=== PATIENT | female | born 1970 | race Hispanic/Latino ===

== ENCOUNTER 2025-04-07 13:05 | Inpatient (IN) | payer OTHER ==
[~2025-04-07] VITALS: Ht 154.9 cm; Wt 71.7 kg
[2025-04-07 13:36] LABS: IMMATURE GRANULOCYTE ABSOLUTE 0.03 K/uL (0-1); NUCLEATED RED BLOOD CELLS 0.0 % (0.0-0.19); PLATELET COUNT (AUTO) 196 K/uL (130-400); RED BLOOD CELL COUNT(AUTO) 3.78 MIL/uL (4.00-5.50); RED CELL DISTRIBUTION WIDTH 13.0 % (11.0-15.5); WHITE BLOOD COUNT (AUTO) 7.1 K/uL (4.8-10.8)
[2025-04-07 13:43] LABS: CREATININE 3.3 mg/dL (0.5-1.0); GLOMERULAR FILTR. RATE CALC 16.0 mL/min (>90); GLUCOSE,RANDOM 150.0 mg/dL (70-105); SODIUM SERUM 138.0 mmol/L (136-145); UREA NITROGEN, BLOOD 41.0 mg/dL (7-18)
--- NOTE | 2025-04-07 13:49 | EKG ---
[facility] Test Date: 2025-04-07 Test Time: 13:15:48 Pat Name: PAIGE BOLTON Department: ED Room: Gender: F Ear Nose Throat Physician: [id number] : 1970 Requested By: LORRAINE GUSTAFSON Order Number: [id number] Reading MD: Chrystal Albrecht Measurements Intervals [place] Rate: 86 P: 50 MI: 149 QRS: 25 QRSD: 98 T: 73 QT: 367 QTc: 440 Interpretive Statements Sinus rhythm Consider anteroseptal infarct Nonspecific T abnormalities, lateral leads No previous ECG available for comparison Electronically Signed On 04-07-2025 14:34:50 CDT by Chrystal Albrecht Please click the below link to view image of tracing.
--- NOTE | 2025-04-07 13:56 | ERN ---
General Chief Complaint: Hypertension Stated Complaint: HTN Time Seen by MD: 13:17 History of Present Illness Initial Comments This is a 54-year-old female presents to the emergency department with a chief complaint of persistently elevated blood pressure over the past 48 hours. She reports home blood pressure measurements consistently in the 200s/100s, with a peak reading of 228/124 mm Hg this morning. She denies associated symptoms including headache, dizziness, visual changes, chest pain, palpitations, shortness of breath, lower extremity edema, abdominal or flank pain, and focal neurologic deficits. Allergies: Coded Allergies: No Known Drug Allergies (Unverified Allergy, Unknown, 04/07/25) Past Medical History Past Medical History: Diabetes-Type II, High Cholesterol, Hypertension Past Surgical History: Other Surgical History Other: RIGHT RETINAL SX Constitutional: (-) chills, (-) diaphoresis, (-) fever, (-) malaise, (-) weakness, (-) other documentation EENTM: (-) eye pain, (-) blurred vision, (-) tearing, (-) double vision, (-) ear pain, (-) ear discharge, (-) nose pain, (-) nose congestion, (-) throat pain, (-) Throat swelling, (-) mouth pain, (-) tooth pain, (-) mouth swelling, (-) other documentation Respiratory: (-) cough, (-) orthopnea, (-) short of breath, (-) stridor, (-) wheezing, (-) other documentation Cardiovascular: (-) chest pain, (-) edema, (-) palpitations, (-) syncope, (-) dyspnea on exertion, (-) other documentation Gastrointestinal/Abdominal: (-) nausea, (-) vomiting, (-) diarrhea, (-) abdominal pain, (-) abdominal distention, (-) constipation, (-) rectal bleeding, (-) dark stool/melena, (-) other documentation Genitourinary: (-) vaginal discharge, (-) vaginal bleeding, (-) dysuria, (-) frequency, (-) hematuria, (-) pain, (-) other documentation Musculoskeletal: (-) Neck pain, (-) back pain, (-) Flank Pain, (-) joint pain, (-) joint swelling, (-) muscle pain, (-) muscle stiffness, (-) gout, (-) other documentation Skin: (-) laceration, (-) contusion, (-) abrasion, (-) abscess, (-) rash, (-) change in color, (-) change in hair, (-) change in nails, (-) diaphoresis, (-) dryness, (-) other documentation Neuro: (-) altered mental status, (-) headache, (-) syncope, (-) paralysis, (-) numbness, (-) seizure, (-) pre-existing deficit, (-) tremors, (-) weakness, (-) dizziness, (-) slurred speech, (-) vertigo, (-) other documentation Physical Exam General Appearance: (+) no apparent distress Orientation: (+) alert, (+) oriented x 3 Ear, Nose, Throat: (+) hearing grossly normal Neck: (+) normal inspection, (+) supple Respiratory: (+) chest non-tender, (+) lungs clear Heart: (+) irregular (Heartbeat is regularly irregular) Vascular: (+) no edema, (+) normal peripheral pulse Gastrointestinal: (+) soft, (+) non-tender, (+) no organomegaly Extremities: (+) normal range of motion, (+) non-tender Results Laboratory and Microbiology Lab and Micro Result Laboratory Tests Test 04/07/25 13:32 04/07/25 16:17 White Blood Count 7.1 K/uL (4.8-10.8) Red Blood Count 3.78 MIL/uL (4.00-5.50) L Hemoglobin 10.9 g/dL (12.0-16.0) L Hematocrit 31.3 % (36-48) L Mean Corpuscular Volume 82.8 fL (79-99) Mean Corpuscular Hemoglobin 28.8 pg (27.0-33.0) Mean Corpuscular Hemoglobin Concent 34.8 g/dL (32.0-36.0) Red Cell Distribution Width 13.0 % (11.0-15.5) Platelet Count 196 K/uL (130-400) Mean Platelet Volume 9.7 fL (7.5-10.5) Immature Granulocyte % (Auto) 0.4 % (0-1) Neutrophils (%) (Auto) 68.8 % (40.0-77.0) Lymphocytes (%) (Auto) 22.7 % (21.0-51.0) Monocytes (%) (Auto) 5.6 % (3.0-13.0) Eosinophils (%) (Auto) 1.8 % (0.0-8.0) Basophils (%) (Auto) 0.7 % (0.0-5.0) Neutrophils # (Auto) 4.9 K/uL (1.8-7.7) Lymphocytes # (Auto) 1.6 K/uL (1.0-4.8) Monocytes # (Auto) 0.4 K/uL (0.1-1.0) Eosinophils # (Auto) 0.13 K/uL (0.00-0.70) Basophils # (Auto) 0.05 K/uL (0.00-0.20) Absolute Immature Granulocyte (auto 0.03 K/uL (0-1) Nucleated Red Blood Cells 0.0 % (0.0-0.19) Sodium Level 138 mmol/L (136-145) Potassium Level 4.0 mmol/L (3.5-5.1) Chloride Level 103 mmol/L (101-111) Carbon Dioxide Level 28 mmol/L (21-32) Blood Urea Nitrogen 41 mg/dL (7-18) H Creatinine 3.3 mg/dL (0.5-1.0) H Glomerular Filtration Rate Calc 16 mL/min (>90) Random Glucose 150 mg/dL (70-105) H Total Calcium 8.7 mg/dL (8.5-10.1) Troponin I High Sensitivity 12 ng/L (4-50) Urine Color COLORLESS (YELLOW) Urine Appearance CLEAR (CLEAR) Urine pH 6.5 (5.0-8.0) Urine Specific [place] 1.007 (1.001-1.031) Urine Protein 200 mg/dL (NEGATIVE) H Urine Glucose (UA) TRACE mg/dL (NEGATIVE) H Urine Ketones NEGATIVE mg/dL (NEGATIVE) Urine Occult Blood SMALL (NEGATIVE) H Urine Nitrate NEGATIVE (NEGATIVE) Urine Bilirubin NEGATIVE mg/dL (NEGATIVE) Urine Urobilinogen 0.2 mg/dL (0.2-1.0) Urine Leukocyte Esterase NEGATIVE Justyn/uL Urine RBC 0-1 /HPF (0-1) Urine WBC 2-5 /HPF (0-1) H Urine Squamous Epithelial Cells RARE /HPF (0-2) Urine Bacteria RARE /HPF (None Seen) Labs Reviewed?: Yes MDM MDM: Differential diagnosis: Worsening kidney function, hypertensive emergency, Rationale: Tests considered and ordered secondary to shared decision making include: labs, ECG and radiology Previous outside records reviewed: Old ER visits. Risk of complication and/or morbidity or mortality of patient management: None Medications-Per medication reconciliation Need for hospitalization: Patient does meet criteria for hospitalization. Need for emergency major/minor surgery: No There are no social concerns with this patient. Prescription drug management Prescriptions will include symptomatic care Patient's prior external medical records from other ER visits were reviewed by me as indicated. Prior testing and results from previous visits were reviewed. Prior tests were taken into account with medical decision making and resource utilization, independent historian/historians were used to obtain complete medical history. I independently interpreted the test that were performed, results were reviewed by me and considered findings on radiology if ordered. Medical management and examination interpretation discussions were had by me with other qualified healthcare professionals as indicated for the patient's care. Patient will be admitted under the care of hospitalist ED Course Orders Procedure Category Date Status Time Cbc With Differential LAB 04/07/25 Complete 13:21 Chest 1vw RAD 04/07/25 Resulted 13:21 12 Lead Ekg Tracing- EKG 04/07/25 Resulted Technical 13:21 Troponin I High LAB 04/07/25 Complete Sensitivity 13:21 Urinalysis Profile LAB 04/07/25 Complete 13:21 Basic Metabolic Panel LAB 04/07/25 Complete 13:21 Clonidine Hcl 0.2 Mg PHA 04/07/25 Complete Tablet (Catapres 0. 16:00 Nicardipine 25mg Inj PHA 04/07/25 In Process (Cardene 25mg Inj) 16:30 Current Medications Medications (Trade) Dose Ordered Sig/Loco Route PRN Reason Start Time Stop Time Status Last Admin Dose Admin Clonidine HCl (CATApres 0.2 MG TAB) 0.2 mg ONCE ONCE PO 04/07/25 16:00 04/07/25 16:01 DC 04/07/25 16:26 Nicardipine HCl 25 mg/Sodium Chloride 250 ml @ 0 mls/hr PROTOCOL IV 04/07/25 16:30 05/07/25 16:29 Vital Signs Date Time Temp Pulse Resp B/P (MAP) Pulse Ox O2 Delivery O2 Flow Rate FiO2 04/07/25 16:26 79 209/95 04/07/25 14:43 75 20 208/93 98 Room Air* 0 21 04/07/25 13:07 98.8 89 18 /93 98 Room Air DX & DISP Disposition: Inpatient Decision to Admit Time: 17:00 Departure Impression: Primary Impression: Worsening renal function Additional Impression: Hypertensive emergency Condition: Stable Referrals: SELF,REFERRAL (PCP) ROWAN RUBIO MD Apr 07, 2025 13:56 LORRAINE GUSTAFSON MD Apr 07, 2025 17:00
--- NOTE | 2025-04-07 14:22 | HMCIMG ---
CHEST 1VW REASON: htn COMPARISON: None. FINDINGS: Single view of the chest was obtained. Lungs are clear. Heart size is normal. There is no pulmonary vascular congestion. Mediastinum and bony thorax appear unremarkable. IMPRESSION: 1. Normal single view chest x-ray.
[2025-04-07 16:29] LABS: APPEARANCE,URINE CLEAR (CLEAR); GLUCOSE, URINE (UA) TRACE mg/dL (NEGATIVE); LEUKOCYTE ESTERASE ,URINE NEGATIVE Leu/uL (NEGATIVE); NITRATE,URINE NEGATIVE (NEGATIVE); OCCULT BLOOD,URINE SMALL (NEGATIVE)
[2025-04-07 16:35] LABS: ADD UA MICROSCOPIC YES
[2025-04-07 16:36] LABS: SQUAMOUS EPITHELIAL CELL,UR RARE /HPF (0-2)
--- NOTE | 2025-04-07 18:20 | HP ---
[facility] PHYS[facility] Date of Service: Apr 07, 2025 Time of Service: 18:19 HISTORY OF PRESENT ILLNESS: 54-year-old female with past medical history of hypertension, CKD who presented to the hospital secondary to elevated blood pressure. Patient states she was checking her blood pressure at home which was ranging in the upper 200s with peak reading of 228/124. Patient states she was recently diagnosed with hypertension by her primary care provider. 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 She followed up with her primary care provider who started patient on losartan. She started taking losartan around a week ago and was taking the medication at bedtime. She noted that her blood pressure still remained while taking the medication. She denies any chest pain, shortness of breath, abdominal pain, nausea, vomiting, headache, upper or lower extremity weakness. She complains of pain in the left flank area which radiates to left lower quadrant. She denies any changes in her urination and denied any hematuria. Denied any falls, syncopal episode. Labs in the ED were notable for white count of 7.1, hemoglobin was 10.9, platelet count was 196 K, sodium was 138, potassium was 4.0, creatinine was 3.3, blood glucose was [place], troponin was negative x1 Chest x-ray showed No acute infiltrates Presentation to the ED patient's temperature was 98.8, blood pressure was noted to be 206/93, heart rate was in the 80s, patient was saturating 98% on room air. In the ED patient was given clonidine without improvement in blood pressure. She was started on nicardipine drip in the ED. REVIEW OF SYSTEMS CONSTITUTIONAL: Denies fevers, chills, or night sweats. No unintentional weight loss reported. NEUROLOGICAL: Denies headache, amaurosis fugax, motor weakness, sensory deficit, vertigo/spinning sensation, gait abnormalities, or tremors. ENT: No hearing loss, otalgia, otorrhea, rhinitis, rhinorrhea, hoarseness, or sore throat. CARDIOVASCULAR: Denies any exertional angina, dyspnea on exertion, orthopnea, paroxysmal nocturnal dyspnea, palpitations, life-threatening arrhythmias, claudication. PULMONARY: Denies any shortness of breath, cough, phlegm/sputum, hemoptysis, pleuritic chest pain. SLEEP: Denies morning headaches, daytime somnolence or napping. Denies difficulty falling asleep, staying asleep, waking from sleep. Denies knowledge of snoring. GASTROINTESTINAL: Denies any type of dysphagia to either liquids or solids. Denies nausea, vomiting, pyrosis, early satiety, abdominal pain, diarrhea, c onstipation, or changes in stool consistency or caliber. Denies coffee-ground emesis, hematemesis, hematochezia, or melanotic stools. GENITOURINARY: Denies frequency, urgency, nocturia, hematuria or incontinence (Storage/Irritative symptoms.) Low urinary stream, straining to void, urinary intermittency or hesitancy, splitting of the voiding stream, terminal dribbling. Positive for pain in the left flank area ENDOCRINOLOGIC: Denies polyuria, polydipsia, polyphagia or heat/cold intolerances. HEMATOLOGIC: Denies thrombophilia/previous clots, or coagulopathy/bleeding disorders. ONCOLOGIC: Denies personal history of malignancy. DERMATOLOGIC: Denies rashes or pruritus. PSYCHIATRIC: Denies any suicidal or homicidal ideation. Denies hallucinations. PAST MEDICAL HISTORY: [ ] PAST SURGICAL HISTORY: [ ] PAST SOCIAL HISTORY: [ ] FAMILY HISTORY: [ ] Coded Allergies: No Known Drug Allergies (Unverified Allergy, Unknown, 04/07/25) PHYSICAL EXAM GENERAL APPEARANCE: The patient is awake, alert, and oriented, in no acute cardiopulmonary distress. NEUROLOGICAL: Cranial nerves II-XII grossly intact. Motor is 5/5 in bilateral upper and lower extremities proximal to distal. No sensory deficits. HEENT: Face is symmetric. Pupils are equal and reactive. Extraocular movements are intact. NECK: Supple. No JVD. No thyromegaly. No submental, submandibular, pre- /postauricular, occipital or supraclavicular lymphadenopathy. CHEST: Normal chest expansion. No Telemetry. LUNGS: Absence of any rales, rhonchi or any wheezing. CARDIOVASCULAR: Regular. S1 and S2 normal. No appreciable rubs, murmurs or gallops. ABDOMEN: Soft, nontender, and nondistended. There is no rebound, voluntary guarding, or rigidity. : Deferred. No [place]ok. EXTREMITIES: Non-edematous and not cyanotic. No clubbing. Good capillary refill. SKIN: No skin breakdown. Vital Sign (Last 24 Hours) 04/07/25 13:07 Temp 98.8 LABS: Laboratory: Test 04/07/25 16:17 04/07/25 13:32 Range/Units Urine Color COLORLESS YELLOW Urine Appearance CLEAR CLEAR Urine pH 6.5 5.0-8.0 Urine Specific [place] 1.007 1.001-1.031 Urine Protein 200 H NEGATIVE mg/dL Urine Glucose (UA) TRACE H NEGATIVE mg/dL Urine Ketones NEGATIVE NEGATIVE mg/dL Urine Occult Blood SMALL H NEGATIVE Urine Nitrate NEGATIVE NEGATIVE Urine Bilirubin NEGATIVE NEGATIVE mg/dL Urine Urobilinogen 0.2 0.2-1.0 mg/dL Urine Leukocyte Esterase NEGATIVE NEGATIVE Justyn/uL Urine RBC 0-1 0-1 /HPF Urine WBC 2-5 H 0-1 /HPF Urine Squamous Epithelial Cells RARE 0-2 /HPF Urine Bacteria RARE None Seen /HPF White Blood Count 7.1 4.8-10.8 K/uL Red Blood Count 3.78 L 4.00-5.50 MIL/uL Hemoglobin 10.9 L 12.0-16.0 g/dL Hematocrit 31.3 L 36-48 % Mean Corpuscular Volume 82.8 79-99 fL Mean Corpuscular Hemoglobin 28.8 27.0-33.0 pg Mean Corpuscular Hemoglobin Concent 34.8 32.0-36.0 g/dL Red Cell Distribution Width 13.0 11.0-15.5 % Platelet Count 196 130-400 K/uL Mean Platelet Volume 9.7 7.5-10.5 fL Immature Granulocyte % (Auto) 0.4 0-1 % Neutrophils (%) (Auto) 68.8 40.0-77.0 % Lymphocytes (%) (Auto) 22.7 21.0-51.0 % Monocytes (%) (Auto) 5.6 3.0-13.0 % Eosinophils (%) (Auto) 1.8 0.0-8.0 % Basophils (%) (Auto) 0.7 0.0-5.0 % Neutrophils # (Auto) 4.9 1.8-7.7 K/uL Lymphocytes # (Auto) 1.6 1.0-4.8 K/uL Monocytes # (Auto) 0.4 0.1-1.0 K/uL Eosinophils # (Auto) 0.13 0.00-0.70 K/uL Basophils # (Auto) 0.05 0.00-0.20 K/uL Absolute Immature Granulocyte (auto 0.03 0-1 K/uL Nucleated Red Blood Cells 0.0 0.0-0.19 % Sodium Level 138 136-145 mmol/L Potassium Level 4.0 3.5-5.1 mmol/L Chloride Level 103 101-111 mmol/L Carbon Dioxide Level 28 21-32 mmol/L Blood Urea Nitrogen 41 H 7-18 mg/dL Creatinine 3.3 H 0.5-1.0 mg/dL Glomerular Filtration Rate Calc 16 >90 mL/min Random Glucose 150 H 70-105 mg/dL Hemoglobin A1c 6.1 H 4.0-6.0 % Estimated Average Glucose (eAG) 128 H 70-126 mg/dL Total Calcium 8.7 8.5-10.1 mg/dL Troponin I High Sensitivity 12 4-50 ng/L C-Reactive Protein, Quantitative 2.80 0.5-3.0 mg/L Procalcitonin < 0.05 L 0.05-0.5 ng/mL Thyroid Stimulating Hormone (TSH) 1.31 0.36-3.74 uIU/mL Current Medications Medications (Trade) Dose Ordered Sig/Loco Route PRN Reason Start Time Stop Time Status Last Admin Dose Admin Acetaminophen (TYLenol 500MG TAB) 500 mg Q6H PRN PO MILD PAIN (1-3) 04/07/25 17:30 04/07/25 17:44 DC Acetaminophen (TYLenol 500MG TAB) 500 mg Q6H PRN PO MILD PAIN (1-3) 04/07/25 17:30 05/07/25 17:29 Nicardipine HCl 25 mg/Sodium Chloride 250 ml @ 0 mls/hr PROTOCOL IV 04/07/25 16:30 05/07/25 16:29 04/07/25 17:23 50 MLS/HR DIAGNOSTICS / RADIOLOGY: [ ] ASSESSMENT: Hypertensive emergency Acute kidney injury on chronic kidney disease Proteinuria Left-sided flank pain Hypokalemia History of retinopathy of the right eye History of cataract PLAN: - patient to be admitted to ICU -in reference to hypertensive emergency. The patient will be started on nicardipine drip to gradually lower blood pressure. Aim for 25 % reduction in MEP. We will request consultation with critical Care -obtain a urine protein and creatinine ratio random. Check urine sodium, urine creatinine. Obtain a CT abdomen pelvis. We will request consultation with Nephrology -obtain home medications which will be reconciled once available -obtain echocardiogram -further orders per hospitalization course. Advanced Care Planning Which of the following were discussed: Hospice care: Yes __ No _x_ Therapeutic options: Yes __ No __ Advance directives: Yes __ No __ Other discussions: Pt is full code Discussed with who?: patient (Patient, family or surrogates) Voluntary nature of this service was explained to the patient? Yes _x_ No __ Amount of time spent: 25 minutes AIMEE García MD, MD Apr 07, 2025 18:20
[2025-04-07 18:52] LABS: CREATININE,URINE RANDOM 31.71 mg/dL (30-135)
[2025-04-07 19:05] LABS: PROTEIN,URINE RANDOM 331.5 mg/dL (0-11.9)
--- NOTE | 2025-04-07 21:33 | HMCIMG ---
EXAMINATION: ULTRASOUND OF THE RETROPERITONEUM. CLINICAL HISTORY: LINA on CKD. COMPARISON: None. TECHNIQUE: Real-time grayscale ultrasound images of the kidneys. FINDINGS: The kidneys are normal in caliber, the right kidney measures 9.5 x 5.1 x 5.3 cm and the left kidney measures 10.9 x 4.6 x 4.9 cm in its craniocaudal, AP, and transverse dimensions respectively. There is normal renal cortical thickness, and increased cortical echogenicity. There is no renal calculus or hydronephrosis. There is a simple cortical cyst that measures 3.1 x 2.7 x 2.6 cm in the upper pole of the right kidney. The urinary bladder is normal in caliber and wall thickness. There are no calculi in the urinary bladder. IMPRESSION: Bilateral renal parenchymal disease. Right renal simple cortical cyst. /[place]
[2025-04-08] VITALS (17 sets, daily range): BP systolic 144–174; BP diastolic 70–86; PULSE 61–90; RESP 8–22; TEMP 97.2–98; O2SAT 97–99
[2025-04-08 08:48] LABS: IMMATURE GRANULOCYTE ABSOLUTE 0.02 K/uL (0-1); NUCLEATED RED BLOOD CELLS 0.0 % (0.0-0.19); PLATELET COUNT (AUTO) 195 K/uL (130-400); RED BLOOD CELL COUNT(AUTO) 3.48 MIL/uL (4.00-5.50); RED CELL DISTRIBUTION WIDTH 13.0 % (11.0-15.5); WHITE BLOOD COUNT (AUTO) 6.3 K/uL (4.8-10.8)
--- NOTE | 2025-04-08 09:12 | NUR ---
NICARDEPENE STOPPED BY NIGHT NURSE
[2025-04-08 09:15] LABS: % IRON SATURATION 19.3 % (22-44); IRON, SERUM 40.0 mcg/dL (50-170)
[2025-04-08] MEDS: FAMOTIDINE 20MG VIAL IV SCH (09:24)
[2025-04-08 09:28] LABS: CREATININE 3.5 mg/dL (0.5-1.0); GLOMERULAR FILTR. RATE CALC 15.0 mL/min (>90); GLUCOSE,RANDOM 95.0 mg/dL (70-105); SODIUM SERUM 136.0 mmol/L (136-145); UREA NITROGEN, BLOOD 43.0 mg/dL (7-18)
[2025-04-08] MEDS ORDERED: LOSA25TA41 PO (10:09)
[2025-04-08] MEDS ORDERED: FOLI0.8T22 PO (10:12)
[2025-04-08] MEDS ORDERED: PRED5DRO25 OD (10:12)
[2025-04-08] MEDS ORDERED: ROSU10TA72 PO (10:12)
[2025-04-08] MEDS ORDERED: KETO-108 OD (10:12)
--- NOTE | 2025-04-08 10:28 | HMCIMG ---
PELVIC ULTRASOUND INDICATION: positive beta HCG, assess ovary and uterus TECHNIQUE: Pelvic ultrasound was performed by a resource manager and reviewed by a radiologist. FINDINGS: Uterus: 8.4 x 3.0 x 4.4 cm. There is to small fibroids seen in the uterus in the fundal region anteriorly measures 0.6 x 0.3 x 0.6 cm. In the posterior uterus there is a fibroid measuring 0.4 x 0.3 x 0.57.. There is small amount of fluid seen in the cervix. Endometrial complex: 0.2 cm. Right ovary measures 1.7 x 1.1 x 1.5 cm. There is a small right ovarian simple cyst measuring 0.6 x 0.7 to 0.6 cm.. Left ovary obscured by overlying bowel gas.. Cul-de-sac: Unremarkable. IMPRESSION: Small fibroids as described above Small right ovarian cyst FINAL ASSESSMENT: ACR: O-RAD- 2 Almost certainly benign.
[2025-04-08] MEDS ORDERED: COMPOUND IV MISC 1 EACH IVSOLN MISC PRN (12:00)
--- NOTE | 2025-04-08 12:35 | CONS ---
REFERRING PHYSICIAN: Trevor Finch MD REASON FOR CONSULTATION: Renal failure, uncontrolled hypertension. HISTORY OF PRESENT ILLNESS: A 54-year-old female with a history of diabetes mellitus and hypertension. She presented to the hospital with hypertensive urgency. The patient with systolic blood pressure well above 200 mmHg. The patient states she had been compliant with her outpatient medications. In the Emergency Room, the patient was found to have significant renal dysfunction with an elevated BUN and creatinine and the patient is being seen in consultation for all the above. PAST MEDICAL HISTORY: Diabetes mellitus, hypertension, known retinopathy. PAST SURGICAL HISTORY: Eye surgery. SOCIAL HISTORY: No alcohol or tobacco use. FAMILY HISTORY: No renal disease in the family. ALLERGIES: There are no allergies. MEDICATIONS: All noted. REVIEW OF SYSTEMS: CONSTITUTIONAL: She has been feeling weak and tired. HEENT: No change in vision. No change in hearing. No nasal discharge. No sore throat. CARDIOVASCULAR: There is no current chest pain or palpitations. PULMONARY: She denies any shortness of breath. GASTROINTESTINAL: The patient is tolerating a diet. MUSCULOSKELETAL: Complaints of weakness. NEUROLOGIC: No history of seizures or focal deficits. PSYCHIATRIC: No history of hallucination or psychosis. ENDOCRINE: Diabetes mellitus. No history of thyroid disease. HEME: History of anemia. No history of malignancy. PHYSICAL EXAMINATION: VITAL SIGNS: Blood pressure 144/73 on the nicardipine, pulse in the 60s. GENERAL: Chronically ill female, older than appearing. HEENT: Head is atraumatic. Pupils are equal, roving to light. Oropharynx is without exudate. Nares clear. NECK: There is no JVP. There is no thyromegaly. No masses. CARDIOVASCULAR: Regular. There is no S3 or S4 gallop. LUNGS: Coarse with equal thoracic movement. ABDOMEN: Soft, nondistended, nontender. EXTREMITIES: Reveal no clubbing, no cyanosis. NEUROLOGICAL: She is awake. She is alert. She is oriented. SKIN: Reveals no rashes or nodules. BACK: There is no CVA tenderness. There is no back deformity. LABORATORY DATA: Sodium 136, potassium 3.8. Iron levels are noted. Hemoglobin 10, hematocrit 29. Urinalysis does reveal 10 g of proteinuria. IMPRESSION: * Acute on chronic renal failure. * Diabetic nephropathy. * Hypertension. * Anemia. PLAN: The patient presents with significant renal dysfunction that appears mainly chronic in nature. The patient with evidence of diabetic nephropathy. She has been resumed on losartan. We will add Norvasc to the medical regimen for improved blood pressure control and we will continue to follow closely. She can be given a dose of IV Venofer for the anemia. All labs can be repeated in the a.m. There is no need for any form of renal replacement therapy. The patient and family at the bedside. Multiple questions were answered. TID: [id number] RECEIPT: [id number]
[2025-04-08] MEDS: amLODIPine 5 MG TAB PO ONE (12:54)
--- NOTE | 2025-04-08 14:23 | PN ---
[facility] PROGRESS NOTE Date of Service: Apr 08, 2025 Time of Service: 14:23 HISTORY OF PRESENT ILLNESS: 54-year-old female with past medical history of hypertension, CKD who presented to the hospital secondary to elevated blood pressure. Patient states she was checking her blood pressure at home which was ranging in the upper 200s with peak reading of 228/124. Patient states she was recently diagnosed with hypertension by her primary care provider. 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 She followed up with her primary care provider who started patient on losartan. She started taking losartan around a week ago and was taking the medication at bedtime. She noted that her blood pressure still remained while taking the medication. She denies any chest pain, shortness of breath, abdominal pain, nausea, vomiting, headache, upper or lower extremity weakness. She complains of pain in the left flank area which radiates to left lower quadrant. She denies any changes in her urination and denied any hematuria. Denied any falls, syncopal episode. Labs in the ED were notable for white count of 7.1, hemoglobin was 10.9, platelet count was 196 K, sodium was 138, potassium was 4.0, creatinine was 3.3, blood glucose was Kane, troponin was negative x1 Chest x-ray showed No acute infiltrates Presentation to the ED patient's temperature was 98.8, blood pressure was noted to be 206/93, heart rate was in the 80s, patient was saturating 98% on room air. In the ED patient was given clonidine without improvement in blood pressure. She was started on nicardipine drip in the ED. SUBJECTIVE: [ ] 04/08/2025: Patient was evaluated at bedside in room 219. Patient reports that she has a recent diagnosis of hypertension while being evaluated for retinal detachment surgery in her right eye. Patient reports starting losartan 25 mg b.i.d. on Thursday this week. Patient reports noticing blood pressures greater than 200/100 at home that prompted her to visit the ED. Patient denies headaches, chest pain, shortness of breath, pedal edema, confusion, and weakness in extremities throughout this time. Patient reports she had sleep apnea in the past that is controlled after tonsillectomy. While in the ED clonidine was given that did not reduce her blood pressure and later a nicardipine drip was started and was later weaned off. Her blood pressure was in the range of 160s and diastolic in the range of 80s during my visit. Patient's creatinine was 3.5 And no prior values are available to assess her baseline. Patient was seen by Dr. aSavedra, design drafter who advised to start losartan 50 mg daily and amlodipine [address] Saavedra deemed her creatinine is most likely chronic in nature due to hypertension. REVIEW OF SYSTEMS CONSTITUTIONAL: Denies fevers, chills, or night sweats. No unintentional weight loss reported. NEUROLOGICAL: Denies headache, motor weakness, sensory deficit, vertigo/spinning sensation, gait abnormalities, or tremors. ENT: No hearing loss, otalgia, otorrhea, rhinitis, rhinorrhea, hoarseness, or sore throat. CARDIOVASCULAR: Denies any exertional angina, dyspnea on exertion, orthopnea, paroxysmal nocturnal dyspnea, palpitations, life-threatening arrhythmias, claudication. PULMONARY: Denies any shortness of breath, cough, phlegm/sputum, hemoptysis, pleuritic chest pain. SLEEP: Denies morning headaches, daytime somnolence or napping. Denies difficulty falling asleep, staying asleep, waking from sleep. Admits to snoring GASTROINTESTINAL: Denies any type of dysphagia to either liquids or solids. Denies nausea, vomiting, pyrosis, early satiety, abdominal pain, diarrhea, constipation, or changes in stool consistency or caliber GENITOURINARY: Denies frequency, urgency, nocturia, hematuria or incontinence (Storage/Irritative symptoms.)\ Musculoskeletal: Admits to chronic back pain PHYSICAL EXAM GENERAL APPEARANCE: The patient is awake, alert, and oriented, in no acute cardiopulmonary distress. NEUROLOGICAL: Cranial nerves II-XII grossly intact. Motor is 5/5 in bilateral upper and lower extremities proximal to distal. No sensory deficits. HEENT: Face is symmetric. Pupils are equal and reactive. Extraocular movements are intact. NECK: Supple. No JVD. No thyromegaly. No submental, submandibular, pre- /postauricular, occipital or supraclavicular lymphadenopathy. CHEST: Normal chest expansion. No Telemetry. LUNGS: Absence of any rales, rhonchi or any wheezing. CARDIOVASCULAR: Regular. S1 and S2 normal. No appreciable rubs, murmurs or gallops. ABDOMEN: Soft, nontender, and nondistended. There is no rebound, voluntary guarding, or rigidity. : Deferred. No Crook. EXTREMITIES: Non-edematous and not cyanotic. No clubbing. Good capillary refill. SKIN: No skin breakdown. Vital Signs (last 8hr) Date Time Temp Pulse Resp B/P (MAP) Pulse Ox O2 Delivery O2 Flow Rate FiO2 04/08/25 13:00 65 22 161/81 100 Room Air 04/08/25 12:00 61 17 157/72 99 Room Air 04/08/25 11:30 99 Room Air* 0 21 04/08/25 11:00 97.2 65 22 144/73 99 Room Air 04/08/25 08:47 80 16 148/78 98 Room Air* 0 21 04/08/25 07:42 97.9 80 16 148/65 96 Room Air* 0 21 LABS: Laboratory: Test 04/08/25 08:18 04/07/25 16:17 04/07/25 13:32 Range/Units White Blood Count 6.3 4.8-10.8 K/uL Red Blood Count 3.48 L 4.00-5.50 MIL/uL Hemoglobin 10.1 L 12.0-16.0 g/dL Hematocrit 29.2 L 36-48 % Mean Corpuscular Volume 83.9 79-99 fL Mean Corpuscular Hemoglobin 29.0 27.0-33.0 pg Mean Corpuscular Hemoglobin Concent 34.6 32.0-36.0 g/dL Red Cell Distribution Width 13.0 11.0-15.5 % Platelet Count 195 130-400 K/uL Mean Platelet Volume 10.1 7.5-10.5 fL Immature Granulocyte % (Auto) 0.3 0-1 % Neutrophils (%) (Auto) 65.8 40.0-77.0 % Lymphocytes (%) (Auto) 24.3 21.0-51.0 % Monocytes (%) (Auto) 5.5 3.0-13.0 % Eosinophils (%) (Auto) 3.5 0.0-8.0 % Basophils (%) (Auto) 0.6 0.0-5.0 % Neutrophils # (Auto) 4.2 1.8-7.7 K/uL Lymphocytes # (Auto) 1.5 1.0-4.8 K/uL Monocytes # (Auto) 0.4 0.1-1.0 K/uL Eosinophils # (Auto) 0.22 0.00-0.70 K/uL Basophils # (Auto) 0.04 0.00-0.20 K/uL Absolute Immature Granulocyte (auto 0.02 0-1 K/uL Nucleated Red Blood Cells 0.0 0.0-0.19 % Reticulocyte Count (auto) 1.18539 0.42-2.23 % Immature Reticulocyte Fraction 7.80 H 0.18-0.48 % Sodium Level 136 136-145 mmol/L Potassium Level 3.8 3.5-5.1 mmol/L Chloride Level 104 101-111 mmol/L Carbon Dioxide Level 26 21-32 mmol/L Blood Urea Nitrogen 43 H 7-18 mg/dL Creatinine 3.5 H 0.5-1.0 mg/dL Glomerular Filtration Rate Calc 15 >90 mL/min Random Glucose 95 70-105 mg/dL Total Calcium 8.7 8.5-10.1 mg/dL Iron Level 40 L 50-170 mcg/dL Total Iron Binding Capacity 207 L 250-450 mcg/dL Percent Iron Saturation 19.3 L 22-44 % Ferritin 231 H 15-150 ng/mL Vitamin B12 Level 1060 H 193-986 pg/mL Urine Color COLORLESS YELLOW Urine Appearance CLEAR CLEAR Urine pH 6.5 5.0-8.0 Urine Specific [place] 1.007 1.001-1.031 Urine Protein 200 H NEGATIVE mg/dL Urine Glucose (UA) TRACE H NEGATIVE mg/dL Urine Ketones NEGATIVE NEGATIVE mg/dL Urine Occult Blood SMALL H NEGATIVE Urine Nitrate NEGATIVE NEGATIVE Urine Bilirubin NEGATIVE NEGATIVE mg/dL Urine Urobilinogen 0.2 0.2-1.0 mg/dL Urine Leukocyte Esterase NEGATIVE NEGATIVE Justyn/uL Urine RBC 0-1 0-1 /HPF Urine WBC 2-5 H 0-1 /HPF Urine Squamous Epithelial Cells RARE 0-2 /HPF Urine Bacteria RARE None Seen /HPF Urine Random Creatinine 31.71 30-135 mg/dL Urine Random Total Protein 331.5 H 0-11.9 mg/dL Urine Random Sodium 51 40-220 mmol/l Hemoglobin A1c 6.1 H 4.0-6.0 % Estimated Average Glucose (eAG) 128 H 70-126 mg/dL Troponin I High Sensitivity 12 4-50 ng/L C-Reactive Protein, Quantitative 2.80 0.5-3.0 mg/L Procalcitonin < 0.05 L 0.05-0.5 ng/mL Thyroid Stimulating Hormone (TSH) 1.31 0.36-3.74 uIU/mL Human Chorionic Gonadotropin, Quant 9 H 0-5 mIU/mL Current Medications Medications (Trade) Dose Ordered Sig/Loco Route PRN Reason Start Time Stop Time Status Last Admin Dose Admin Acetaminophen (TYLenol 500MG TAB) 500 mg Q6H PRN PO MILD PAIN (1-3) 04/07/25 17:30 04/07/25 17:44 DC Acetaminophen (TYLenol 500MG TAB) 500 mg Q6H PRN PO MILD PAIN (1-3) 04/07/25 17:30 05/07/25 17:29 Amlodipine Besylate (NorvASC 5MG TAB) 10 mg DAILY PO 04/09/25 09:00 05/09/25 08:59 Atorvastatin Calcium (LIPItor 40MG) 40 mg HS PO 04/08/25 21:00 05/08/25 20:59 Famotidine (Pepcid 20mg Vial) 20 mg Q48H IV 04/08/25 09:00 05/08/25 08:59 04/08/25 09:24 20 MG Ketorolac Tromethamine (ketOROlac troMETHamine) 1 ml BID OD 04/08/25 21:00 05/08/25 20:59 Losartan Potassium (CozAAR 25MG TAB) 25 mg BID PO 04/08/25 11:30 05/08/25 11:29 04/08/25 12:13 25 MG Losartan Potassium (CozAAR 25MG TAB) 25 mg BID PO 04/08/25 21:00 05/08/25 20:59 UNV Nicardipine HCl 25 mg/Sodium Chloride 250 ml @ 0 mls/hr PROTOCOL IV 04/07/25 16:30 05/07/25 16:29 04/07/25 17:23 50 MLS/HR Prednisolone Acetate (PREDforte 1% DROPS) 1 drop DAILY OD 04/09/25 09:00 05/09/25 08:59 Vitamin B Complex/ Vit C/Folic Acid (Nephrovite Tablet) 1 cap DAILY PO 04/09/25 09:00 05/09/25 08:59 DIAGNOSTICS / RADIOLOGY: [ ] PATIENT: PAIGE BOLTON MR#: [id number] : 1970 SEX: F AGE: 54 LOCATION: [facility] ORDER 1244 STATUS: ADM IN REPORT#: [id number] SERVICE 1243 REASON: htn emergency ORDERING PHYSICIAN: MEÑO FABIAN PROCEDURE: ECHO CMP - ECHO 2-D COMPLETE APPROVED REPORT EXAM: Two-dimensional and M-mode echocardiogram with Doppler and color Doppler. INDICATION ICD: HTN emergency 2D Dimensions RVDd 3.6 cm LVEF(%) 68.0 (>50%) LVED Vol(simp.) 82.1 mL IVSd 1.2 (0.7-1.1cm) FS(%) 37 % LVES Vol(simp.) 33.5 mL LVDd 3.9 (3.8-5.6cm) LA (2D) 3.9 (1.6-4.0cm) LVEF(%, simp.) 59 % PWd 1.3 (0.7-1.1cm) Ao Root(2D) 2.9 (2.0-3.7cm) LA ESV INDEX (BP) 31.26 mL/m2 LVDs 2.4 (2.5-4.0cm) LVOT diam 1.9 (1.8-2.4cm) IVC diam 1.7 cm Deformation Strain Apical 4 -14.9 % Apical 2 -16.3 % Apical 3 -14.0 % Global Strain -15.0 % M-Mode Dimensions EPSS 0.5 cm LA (MM) 3.8 (1.6-4.0cm) Ao Root(MM) 2.6 (2.0-3.7cm) Aortic Valve AoV Vmax 1.0 m/s Ao Peak GR 3.9 mmHg LVOT Vmax 0.7 m/s AoV VTI 0.3 m Ao Mean GR 2.3 mmHg LVOT VTI 0.18 m EDDIE (VMAX) 2.02 cm2 EDDIE (VTI) 1.9 cm2 Mitral Valve MV E Vmax 82.2 cm/s DECEL Time 195 ms MV A Vmax 68.6 cm/s P 1/2 T 83 ms E/A ratio 1.2 MVA (PHT) 2.6 cm2 TDI E/E' Medial 19.1 E/E' Lateral 12.7 Medial E' Peak V 4.31 cm/s Lateral E' Peak V 6.46 cm/s Pulmonary Valve PV Vmax 0.8 m/s PV VTI 0.20 m PV Mean GR 1.5 mmHg PV Peak GR 2.5 mmHg Left Ventricle The left ventricle is normal size. Mild concentric left ventricular hypertrophy. LVEF is 55-60%. Indeterminate diastolic dysfunction. Right Ventricle The right ventricle is normal size. The right ventricular systolic function is normal. Atria The left atrium size is normal. The right atrium size is normal. Aortic Valve The aortic valve is normal in structure. No aortic regurgitation is present. There is no aortic valvular stenosis. Mitral Valve The mitral valve is normal in structure. There is no mitral valve regurgitation noted. There is no mitral valve stenosis. Tricuspid Valve The tricuspid valve is normal in structure. There is no tricuspid valve regurgitation noted. Pulmonic Valve The pulmonary valve is normal in structure. There is no pulmonic valvular regurgitation. Great Vessels The aortic root is normal in size. The IVC is normal in size and collapses >50% with inspiration. Pericardium There is trace pericardial effusion. Conclusion The left ventricle is normal size. Mild concentric left ventricular hypertrophy. LVEF is 55-60%. Indeterminate diastolic dysfunction. The right ventricle is normal size. The right ventricular systolic function is normal. The left atrium size is normal. The right atrium size is normal. No valvular pathology. There is trace pericardial effusion. DICTATED BY: JOSH TRAYLOR MD DATE: 04/08/25 1414 ELECTRONICALLY SIGNED BY: JOSH TRAYLOR MD DATE: 04/08/25 1659 PATIENT: PAIGE BOLTON MR#: [id number] : 1970 SEX: F AGE: 54 LOCATION: [facility] ORDER 12 STATUS: ADM IN REPORT#: [id number] SERVICE 11 REASON: positive beta HCG, assess ovary and uterus ORDERING PHYSICIAN: AIMEE MEDINA MD PROCEDURE: PELVCOMP - US PELVIC NON-OB COMP PELVIC ULTRASOUND INDICATION: positive beta HCG, assess ovary and uterus TECHNIQUE: Pelvic ultrasound was performed by a car dumper operator and reviewed by a radiologist. FINDINGS: Uterus: 8.4 x 3.0 x 4.4 cm. There is to small fibroids seen in the uterus in the fundal region anteriorly measures 0.6 x 0.3 x 0.6 cm. In the posterior uterus there is a fibroid measuring 0.4 x 0.3 x 0.57.. There is small amount of fluid seen in the cervix. Endometrial complex: 0.2 cm. Right ovary measures 1.7 x 1.1 x 1.5 cm. There is a small right ovarian simple cyst measuring 0.6 x 0.7 to 0.6 cm.. Left ovary obscured by overlying bowel gas.. Cul-de-sac: Unremarkable. IMPRESSION: Small fibroids as described above Small right ovarian cyst FINAL ASSESSMENT: ACR: O-RAD- 2 Almost certainly benign. DICTATED BY: NASH ORTEZ MD DATE: 04/08/25 1022 ELECTRONICALLY SIGNED BY: NASH ORTEZ MD DATE: 04/08/25 1028 PATIENT: PAIGE BOLTON MR#: [id number] : 1970 SEX: F AGE: 54 LOCATION: [facility] ORDER 42 STATUS: ADM IN REPORT#: [id number] SERVICE 41 REASON: lina on CKD ORDERING PHYSICIAN: AIMEE MEDINA MD PROCEDURE: RENAL - US RENAL SONOGRAM EXAMINATION: ULTRASOUND OF THE RETROPERITONEUM. CLINICAL HISTORY: LINA on CKD. COMPARISON: None. TECHNIQUE: Real-time grayscale ultrasound images of the kidneys. FINDINGS: The kidneys are normal in caliber, the right kidney measures 9.5 x 5.1 x 5.3 cm and the left kidney measures 10.9 x 4.6 x 4.9 cm in its craniocaudal, AP, and transverse dimensions respectively. There is normal renal cortical thickness, and increased cortical echogenicity. There is no renal calculus or hydronephrosis. There is a simple cortical cyst that measures 3.1 x 2.7 x 2.6 cm in the upper pole of the right kidney. The urinary bladder is normal in caliber and wall thickness. There are no calculi in the urinary bladder. IMPRESSION: Bilateral renal parenchymal disease. Right renal simple cortical cyst. /[place] DICTATED BY: MARINO MONTALVO Jr., MD DATE: 04/07/252232 ELECTRONICALLY SIGNED BY: MARINO MONTALVO Jr., MD DATE: 04/07/252232 PATIENT: PAIGE BOLTON MR#: [id number] : 1970 SEX: F AGE: 54 LOCATION: ED ORDER 21 STATUS: REG REPORT#: [id number] SERVICE 20 REASON: htn ORDERING PHYSICIAN: LORRAINE GUSTAFSON MD PROCEDURE: CXR1VW - CHEST 1VW CHEST 1VW REASON: htn COMPARISON: None. FINDINGS: Single view of the chest was obtained. Lungs are clear. Heart size is normal. There is no pulmonary vascular congestion. Mediastinum and bony thorax appear unremarkable. IMPRESSION: 1. Normal single view chest x-ray. DICTATED BY: NASH ORTEZ MD DATE: 04/07/251418 ELECTRONICALLY SIGNED BY: NASH ORTEZ MD DATE: 04/07/251421 ASSESSMENT: Hypertensive emergency Acute kidney injury on chronic kidney disease Proteinuria Elevated beta hCG Mild concentric left ventricular hypertrophy and indeterminate diastolic dysfunction Left-sided flank pain, most likely musculoskeletal in nature History of surgery on right eye for partial retinal detachment History of bilateral cataracts History of sleep apnea History of tonsillectomy PLAN: Hypertensive emergency Patient admitted to ICU, telemetry is in place On admission blood pressure was 206/93 mm hg Patient started on nicardipine drip which is weaned off this morning Patient started on losartan 25 mg b.i.d. Patient started on amlodipine 10 mg once daily P.r.n. hydralazine and labetalol per protocol Monitor vitals every hour Monitored for signs of acute end-organ damage LINA on CKD Patient's creatinine is 3.5 and BUN is 43 Patient has proteinuria, urine random total protein 331 Continue losartan Elevated beta hCG Patient's serum beta HCG was elevated at 9 Pelvic ultrasound was ordered which showed small right ovarian cyst and small fibroids ACR O-RAD to almost certainly benign as per pelvic ultrasound on 04/08/2025 Mild concentric left ventricular hypertrophy and indeterminate diastolic dysfunction Patient has LVEF of 55-60%, mild concentric LVH and indeterminate diastolic dysfunction as per echo on 04/08/2025 Trace pericardial effusion noted Continue to monitor and manage acutely high blood pressure Continue GI prophylaxis with famotidine and DVT prophylaxis We will follow the recommendations from intensive care and Nephrology. ATTESTATION BY PHYSICIAN I have seen and examined the patient. I reviewed the documentation, medical decision making, and treatment plan as noted by the resident provider above. I agree with the findings and plan of care. Bakari Torres MD, HARSHAVARDHA MD Apr 08, 2025 14:23
[2025-04-08 14:54] LABS: AMPHET/METH SCREEN,URINE NEGATIVE (NEGATIVE); BARBITURATE SCREEN, URINE NEGATIVE (NEGATIVE); CANNABINOID SCREEN,URINE NEGATIVE (NEGATIVE); COCAINE SCREEN,URINE NEGATIVE (NEGATIVE)
--- NOTE | 2025-04-08 16:59 | HMCSR ---
APPROVED REPORT EXAM: Two-dimensional and M-mode echocardiogram with Doppler and color Doppler. INDICATION ICD: HTN emergency 2D Dimensions RVDd3.6 cmLVEF(%)68.0 (>50%)LVED Vol(simp.)82.1 mL IVSd1.2 (0.7-1.1cm)FS(%)37 %LVES Vol(simp.)33.5 mL LVDd3.9 (3.8-5.6cm)LA (2D)3.9 (1.6-4.0cm)LVEF(%, simp.)59 % PWd1.3 (0.7-1.1cm)Ao Root(2D)2.9 (2.0-3.7cm)LA ESV INDEX (BP)31.26 mL/m2 LVDs2.4 (2.5-4.0cm)LVOT diam1.9 (1.8-2.4cm) IVC diam1.7 cm Deformation Strain Apical 4-14.9 % Apical 2-16.3 % Apical 3-14.0 % Global Strain-15.0 % M-Mode Dimensions EPSS0.5 cm LA (MM)3.8 (1.6-4.0cm) Ao Root(MM)2.6 (2.0-3.7cm) Aortic Valve AoV Vmax1.0 m/Hill Peak GR3.9 mmHgLVOT Vmax0.7 m/s AoV VTI0.3 mAo Mean GR2.3 mmHgLVOT VTI0.18 m EDDIE (VMAX)2.02 cm2AVA (VTI) 1.9 cm2 Mitral Valve MV E Vmax82.2 cm/sDECEL Llbc846 ms MV A Vmax68.6 cm/sP 1/2 T83 ms E/A ratio1.2MVA (PHT)2.6 cm2 TDI E/E' [id number]/E' Xkzbloz44.7 Medial E' Peak V4.31 cm/sLateral E' Peak V6.46 cm/s Pulmonary Valve PV Vmax0.8 m/sPV VTI0.20 mPV Mean GR1.5 mmHg PV Peak GR2.5 mmHg Left Ventricle The left ventricle is normal size. Mild concentric left ventricular hypertrophy. LVEF is 55-60%. Inde terminate diastolic dysfunction. Right Ventricle The right ventricle is normal size. The right ventricular systolic function is normal. Atria The left atrium size is normal. The right atrium size is normal. Aortic Valve The aortic valve is normal in structure. No aortic regurgitation is present. There is no aortic valvu lar stenosis. Mitral Valve The mitral valve is normal in structure. There is no mitral valve regurgitation noted. There is no mi tral valve stenosis. Tricuspid Valve The tricuspid valve is normal in structure. There is no tricuspid valve regurgitation noted. Pulmonic Valve The pulmonary valve is normal in structure. There is no pulmonic valvular regurgitation. Great Vessels The aortic root is normal in size. The IVC is normal in size and collapses >50% with inspiration. Pericardium There is trace pericardial effusion. Conclusion The left ventricle is normal size. Mild concentric left ventricular hypertrophy. LVEF is 55-60%. Indeterminate diastolic dysfunction. The right ventricle is normal size. The right ventricular systolic function is normal. The left atrium size is normal. The right atrium size is normal. No valvular pathology. There is trace pericardial effusion.
--- NOTE | 2025-04-08 17:10 | NUR ---
DCP: INITIAL ASSESSMENT Patient lives with sister, Krupa Ferguson. She has no home services. Patient has BPM and glucometer (no insulin) at home. Patient is able to complete ADLs independently but does not drive. Family assists with transportation. Patient states she has poor vision. PCP is Dr. Haroldo Velez. Pharmacy is [facility] in [place]. Patient voiced no safety concerns regarding returning home and states she has no difficulty with housing or buying food. DCP is home. Addendum: 04/08/25 at 1712 by FERNANDO CABRAL SS Amended: Links added.
--- NOTE | 2025-04-08 17:53 | CONS ---
[facility] CONSULTATION NOTE Date Patient Seen: Apr 08, 2025 Time of Visit: 17:52 Supervising Physician: [Dr. Sarah] Reason for Consultation: [Hypertensive emergency] Primary Care Physician: [[facility]] Outpatient Specialists: [ ] Inpatient Consults: [[facility]] PROBLEM LIST: Hypertensive emergency Acute kidney injury on chronic kidney disease Hypokalemia Retinopathy of the right eye Cataract Diabetes Hyperlipidemia HPI: This is a 54-year-old female presents to the emergency department with a chief complaint of persistently elevated blood pressure over the past 48 hours. She reports home blood pressure measurements consistently in the 200s/100s, with a peak reading of 228/124 mm Hg this morning. She denies associated symptoms including headache, dizziness, visual changes, chest pain, palpitations, shortness of breath, lower extremity edema, abdominal or flank pain, and focal neurologic deficits. Nicardipine drip was initiated in ED and has been off since 6AM today. Blood pressure was 157/86 at the time of my visit. She was taking l osartan 25mg BID at home. Plan: Off cardene drip, goal of no more than 25% reduction in MAP in first 24 hrs Increase losartan 50mg BID Order Echo Order renal doppler Follow nephrology recommendation for CKD UDS pending TSH normal Once blood pressure is stabilized off cardene for 24 hrs, downgrade to med/surg with tele PAST MEDICAL HX: see above PAST SURGICAL HX: noncontributory SOCIAL HISTORY: No tobacco, ETOH, or illicit drug use Coded Allergies: No Known Drug Allergies (Unverified Allergy, Unknown, 04/07/25) REVIEW OF SYSTEMS: 12 point ROS reviewed with patient. Pertinent positives mentioned above. Otherwise negative. PHYSICAL EXAM: GENERAL: alert, weak, awake oriented x 3 HEENT: EOMI, Sclera non icteric, moist mucosa NECK: Supple, no JVD, trachea midline LUNGS: Clear breath sounds bilaterally. No wheezes HEART: Regular rate and rhythm. Normal S1 and S2, without murmurs ABD: Abdomen soft, nontender. Bowel sounds present EXT: No clubbing cyanosis or edema NEURO: Alert and oriented to person, follows commands Vital Signs (last 8hr) Date Time Temp Pulse Resp B/P (MAP) Pulse Ox O2 Delivery O2 Flow Rate FiO2 04/08/25 17:12 90 172/80 04/08/25 17:00 84 17 172/80 99 Room Air 04/08/25 16:00 97.5 82 21 160/79 100 Room Air 04/08/25 16:00 99 Room Air* 0 21 04/08/25 15:01 83 16 157/86 98 Room Air 04/08/25 15:00 69 18 166/80 96 Room Air 04/08/25 14:00 63 13 174/84 98 Room Air 04/08/25 13:00 65 22 161/81 100 Room Air 04/08/25 12:00 61 17 157/72 99 Room Air 04/08/25 11:30 99 Room Air* 0 21 04/08/25 11:00 97.2 65 22 144/73 99 Room Air LABS: Hematology Labs: Test 04/08/25 08:18 Range/Units White Blood Count 6.3 4.8-10.8 K/uL Red Blood Count 3.48 L 4.00-5.50 MIL/uL Hemoglobin 10.1 L 12.0-16.0 g/dL Hematocrit 29.2 L 36-48 % Mean Corpuscular Volume 83.9 79-99 fL Mean Corpuscular Hemoglobin 29.0 27.0-33.0 pg Mean Corpuscular Hemoglobin Concent 34.6 32.0-36.0 g/dL Red Cell Distribution Width 13.0 11.0-15.5 % Platelet Count 195 130-400 K/uL Mean Platelet Volume 10.1 7.5-10.5 fL Immature Granulocyte % (Auto) 0.3 0-1 % Neutrophils (%) (Auto) 65.8 40.0-77.0 % Lymphocytes (%) (Auto) 24.3 21.0-51.0 % Monocytes (%) (Auto) 5.5 3.0-13.0 % Eosinophils (%) (Auto) 3.5 0.0-8.0 % Basophils (%) (Auto) 0.6 0.0-5.0 % Neutrophils # (Auto) 4.2 1.8-7.7 K/uL Lymphocytes # (Auto) 1.5 1.0-4.8 K/uL Monocytes # (Auto) 0.4 0.1-1.0 K/uL Eosinophils # (Auto) 0.22 0.00-0.70 K/uL Basophils # (Auto) 0.04 0.00-0.20 K/uL Absolute Immature Granulocyte (auto 0.02 0-1 K/uL Nucleated Red Blood Cells 0.0 0.0-0.19 % Reticulocyte Count (auto) 1.74538 0.42-2.23 % Immature Reticulocyte Fraction 7.80 H 0.18-0.48 % Chemistry Labs: Test 04/08/25 08:18 04/07/25 13:32 Range/Units Sodium Level 136 136-145 mmol/L Potassium Level 3.8 3.5-5.1 mmol/L Chloride Level 104 101-111 mmol/L Carbon Dioxide Level 26 21-32 mmol/L Blood Urea Nitrogen 43 H 7-18 mg/dL Creatinine 3.5 H 0.5-1.0 mg/dL Glomerular Filtration Rate Calc 15 >90 mL/min Random Glucose 95 70-105 mg/dL Total Calcium 8.7 8.5-10.1 mg/dL Iron Level 40 L 50-170 mcg/dL Total Iron Binding Capacity 207 L 250-450 mcg/dL Percent Iron Saturation 19.3 L 22-44 % Ferritin 231 H 15-150 ng/mL Vitamin B12 Level 1060 H 193-986 pg/mL Hemoglobin A1c 6.1 H 4.0-6.0 % Estimated Average Glucose (eAG) 128 H 70-126 mg/dL Troponin I High Sensitivity 12 4-50 ng/L C-Reactive Protein, Quantitative 2.80 0.5-3.0 mg/L Procalcitonin < 0.05 L 0.05-0.5 ng/mL Thyroid Stimulating Hormone (TSH) 1.31 0.36-3.74 uIU/mL Human Chorionic Gonadotropin, Quant 9 H 0-5 mIU/mL DIAGNOSTICS / RADIOLOGY RESULTS: [ ] PLAN NEURO: Minimize central acting medications as possible. Fall Precautions. Well lighted room through the day and minimize interruptions through the night to prevent acute delirium. PULMONARY: Supplemental 02 as needed Titrate Fio2 to keep Spo2 > or = 90% DuoNebs and CPT as needed IS hourly while awake for pulmonary hygiene Out of bed to chair as tolerated CARDIOVASCULAR: Follow hemodynamics. no more than 25% reduction in MAP in first 24 hrs DIPS: [cardene-off] LINES: [ ] GI & NUTRITION: Continue nutritional support Aspirations precautions Prokinetic agents and laxatives as needed KIDNEYS & ELECTROLYTES: Strict monitoring of intake and output Daily weights Avoid nephrotoxic agents Monitor electrolytes and replace as needed ENDOCRINE: Maintain blood glucose between 100-180 at all times. Insulin sliding scale for blood glucose management INFECTIOUS DISEASE: Trend temperature. Montoya-culture if febrile. HEMATOLOGY & COAGULATION: Monitor H&H. Keep Hgb > 7 Transfuse 1 unit of PRBC for Hgb < 7 Transfuse 1 pack of platelets of platelets < 20, 000 Watch for any signs and symptoms of bleeding SKIN: Pressure ulcer prevention per facility protocol Rehab: PT/OT Prophylaxis: GI: [protonix] DVT: [heparin] Code Status: Full Resuscitation Disposition: [ICU] Other: Total patient care time exceeds 35 minutes excluding all procedures. Case was discussed and seen with my supervising physician. The above plan was formulated and agreed upon. MEÑO FABIAN Apr 08, 2025 17:52
[2025-04-09] VITALS (18 sets, daily range): BP systolic 142–181; BP diastolic 67–112; PULSE 76–103; RESP 11–24; TEMP 97.8–98.8; O2SAT 96–98
[2025-04-09 05:19] LABS: IMMATURE GRANULOCYTE ABSOLUTE 0.03 K/uL (0-1); NUCLEATED RED BLOOD CELLS 0.0 % (0.0-0.19); PLATELET COUNT (AUTO) 198 K/uL (130-400); RED BLOOD CELL COUNT(AUTO) 3.50 MIL/uL (4.00-5.50); RED CELL DISTRIBUTION WIDTH 13.2 % (11.0-15.5); WHITE BLOOD COUNT (AUTO) 7.5 K/uL (4.8-10.8)
[2025-04-09 05:38] LABS: CREATININE 3.5 mg/dL (0.5-1.0); GLOMERULAR FILTR. RATE CALC 15.0 mL/min (>90); GLUCOSE,RANDOM 98.0 mg/dL (70-105); PHOSPHORUS 5.1 mg/dL (2.5-4.9); SODIUM SERUM 138.0 mmol/L (136-145); UREA NITROGEN, BLOOD 43.0 mg/dL (7-18)
[2025-04-09] MEDS: Vitamin B Complex/Vit C/Folic Acid PO SCH (08:41)
[2025-04-09] MEDS: amLODIPine 5 MG TAB PO SCH (08:41)
--- NOTE | 2025-04-09 11:47 | PN ---
[facility] PROGRESS NOTE Date of Service: Apr 09, 2025 Time of Service: 11:33 HISTORY OF PRESENT ILLNESS: 54-year-old female with past medical history of hypertension, CKD who presented to the hospital secondary to elevated blood pressure. Patient states she was checking her blood pressure at home which was ranging in the upper 200s with peak reading of 228/124. Patient states she was recently diagnosed with hypertension by her primary care provider. 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 She followed up with her primary care provider who started patient on losartan. She started taking losartan around a week ago and was taking the medication at bedtime. She noted that her blood pressure still remained while taking the medication. She denies any chest pain, shortness of breath, abdominal pain, nausea, vomiting, headache, upper or lower extremity weakness. She complains of pain in the left flank area which radiates to left lower quadrant. She denies any changes in her urination and denied any hematuria. Denied any falls, syncopal episode. Labs in the ED were notable for white count of 7.1, hemoglobin was 10.9, platelet count was 196 K, sodium was 138, potassium was 4.0, creatinine was 3.3, blood glucose was Kane, troponin was negative x1 Chest x-ray showed No acute infiltrates Presentation to the ED patient's temperature was 98.8, blood pressure was noted to be 206/93, heart rate was in the 80s, patient was saturating 98% on room air. In the ED patient was given clonidine without improvement in blood pressure. She was started on nicardipine drip in the ED. SUBJECTIVE: 04/08/2025: Patient was evaluated at bedside in room 219. Patient reports that she has a recent diagnosis of hypertension while being evaluated for retinal detachment surgery in her right eye. Patient reports starting losartan 25 mg b.i.d. on Thursday this week. Patient reports noticing blood pressures greater t akhtar 200/100 at home that prompted her to visit the ED. Patient denies headaches, chest pain, shortness of breath, pedal edema, confusion, and weakness in extremities throughout this time. Patient reports she had sleep apnea in the past that is controlled after tonsillectomy. While in the ED clonidine was given that did not reduce her blood pressure and later a nicardipine drip was started and was later weaned off. Her blood pressure was in the range of 160s and diastolic in the range of 80s during my visit. Patient's creatinine was 3.5 And no prior values are available to assess her baseline. Patient was seen by Dr. Saavedra, television news anchor who advised to start losartan 50 mg daily and amlodipine [address] Saavedra deemed her creatinine is most likely chronic in nature due to hypertension. 04.09.2025: Patient was seen and evaluated in room 219. She reports feeling very tired and experienced nausea with an episode of vomiting earlier today. She shared that she is currently unemployed and expressed financial difficulties, noting that her father managed to cover the cost of her recent surgery but she cannot afford her prescribed medications for diabetes and hypertension. She states she is unable to properly manage her health due to these limitations. Case management is actively working to assist her with insurance coverage. She has been under the care of a retinal specialist, with her next appointment scheduled for next month. REVIEW OF SYSTEMS CONSTITUTIONAL: Denies fevers, chills, or night sweats. No unintentional weight loss reported. NEUROLOGICAL: Denies headache, motor weakness, sensory deficit, vertigo/spinning sensation, gait abnormalities, or tremors. ENT: No hearing loss, otalgia, otorrhea, rhinitis, rhinorrhea, hoarseness, or sore throat. CARDIOVASCULAR: Denies any exertional angina, dyspnea on exertion, orthopnea, paroxysmal nocturnal dyspnea, palpitations, life-threatening arrhythmias, claudication. PULMONARY: Denies any shortness of breath, cough, phlegm/sputum, hemoptysis, pleuritic chest pain. SLEEP: Denies morning headaches, daytime somnolence or napping. Denies difficulty falling asleep, staying asleep, waking from sleep. Admits to snoring GASTROINTESTINAL: Denies any type of dysphagia to either liquids or solids. Denies nausea, vomiting, pyrosis, early satiety, abdominal pain, diarrhea, constipation, or changes in stool consistency or caliber GENITOURINARY: Denies frequency, urgency, nocturia, hematuria or incontinence (Storage/Irritative symptoms.)\ Musculoskeletal: Admits to chronic back pain PHYSICAL EXAM GENERAL APPEARANCE: The patient is awake, alert, and oriented, in no acute cardiopulmonary distress. NEUROLOGICAL: No sensory deficits. HEENT: Face is symmetric. Pupils are equal and reactive. Extraocular movements are intact. NECK: Supple. No thyromegaly. No submental, submandibular, pre-/postauricular, occipital or supraclavicular lymphadenopathy. CHEST: Normal chest expansion. No Telemetry. LUNGS: Absence of any rales, rhonchi or any wheezing. CARDIOVASCULAR: Regular. S1 and S2 normal. No appreciable rubs, murmurs or gallops. ABDOMEN: Soft, nontender, and nondistended. There is no rebound, voluntary guarding, or rigidity. : Deferred. No Crook. EXTREMITIES: Non-edematous and not cyanotic. No clubbing. Good capillary refill. SKIN: No skin breakdown. Vital Signs (last 8hr) Date Time Temp Pulse Resp B/P (MAP) Pulse Ox O2 Delivery O2 Flow Rate FiO2 04/09/25 09:00 82 18 151/69 99 Room Air 04/09/25 08:00 98.4 80 14 158/70 99 Room Air 04/09/25 08:00 98 Room Air* 0 21 04/09/25 07:00 76 24 165/74 99 Room Air 04/09/25 05:41 80 16 148/87 99 Room Air 04/09/25 05:22 81 20 177/80 97 Room Air 04/09/25 05:21 80 16 181/79 99 Room Air 04/09/25 03:41 97.9 77 22 163/67 95 Room Air LABS: Laboratory: Test 04/09/25 04:59 04/08/25 08:18 04/07/25 16:17 04/07/25 13:32 Range/Units White Blood Count 7.5 4.8-10.8 K/uL Red Blood Count 3.50 L 4.00-5.50 MIL/uL Hemoglobin 10.0 L 12.0-16.0 g/dL Hematocrit 29.6 L 36-48 % Mean Corpuscular Volume 84.6 79-99 fL Mean Corpuscular Hemoglobin 28.6 27.0-33.0 pg Mean Corpuscular Hemoglobin Concent 33.8 32.0-36.0 g/dL Red Cell Distribution Width 13.2 11.0-15.5 % Platelet Count 198 130-400 K/uL Mean Platelet Volume 9.7 7.5-10.5 fL Immature Granulocyte % (Auto) 0.4 0-1 % Neutrophils (%) (Auto) 70.6 40.0-77.0 % Lymphocytes (%) (Auto) 19.7 L 21.0-51.0 % Monocytes (%) (Auto) 6.4 3.0-13.0 % Eosinophils (%) (Auto) 2.4 0.0-8.0 % Basophils (%) (Auto) 0.5 0.0-5.0 % Neutrophils # (Auto) 5.3 1.8-7.7 K/uL Lymphocytes # (Auto) 1.5 1.0-4.8 K/uL Monocytes # (Auto) 0.5 0.1-1.0 K/uL Eosinophils # (Auto) 0.18 0.00-0.70 K/uL Basophils # (Auto) 0.04 0.00-0.20 K/uL Absolute Immature Granulocyte (auto 0.03 0-1 K/uL Nucleated Red Blood Cells 0.0 0.0-0.19 % Sodium Level 138 136-145 mmol/L Potassium Level 3.8 3.5-5.1 mmol/L Chloride Level 105 101-111 mmol/L Carbon Dioxide Level 25 21-32 mmol/L Blood Urea Nitrogen 43 H 7-18 mg/dL Creatinine 3.5 H 0.5-1.0 mg/dL Glomerular Filtration Rate Calc 15 >90 mL/min Random Glucose 98 70-105 mg/dL Total Calcium 8.3 L 8.5-10.1 mg/dL Phosphorus Level 5.1 H 2.5-4.9 mg/dL Reticulocyte Count (auto) 1.22256 0.42-2.23 % Immature Reticulocyte Fraction 7.80 H 0.18-0.48 % Iron Level 40 L 50-170 mcg/dL Total Iron Binding Capacity 207 L 250-450 mcg/dL Percent Iron Saturation 19.3 L 22-44 % Ferritin 231 H 15-150 ng/mL Vitamin B12 Level 1060 H 193-986 pg/mL Urine Color COLORLESS YELLOW Urine Appearance CLEAR CLEAR Urine pH 6.5 5.0-8.0 Urine Specific [place] 1.007 1.001-1.031 Urine Protein 200 H NEGATIVE mg/dL Urine Glucose (UA) TRACE H NEGATIVE mg/dL Urine Ketones NEGATIVE NEGATIVE mg/dL Urine Occult Blood SMALL H NEGATIVE Urine Nitrate NEGATIVE NEGATIVE Urine Bilirubin NEGATIVE NEGATIVE mg/dL Urine Urobilinogen 0.2 0.2-1.0 mg/dL Urine Leukocyte Esterase NEGATIVE NEGATIVE Justyn/uL Urine RBC 0-1 0-1 /HPF Urine WBC 2-5 H 0-1 /HPF Urine Squamous Epithelial Cells RARE 0-2 /HPF Urine Bacteria RARE None Seen /HPF Urine Random Creatinine 31.71 30-135 mg/dL Urine Random Total Protein 331.5 H 0-11.9 mg/dL Urine Random Sodium 51 40-220 mmol/l Urine Opiates Screen NEGATIVE NEGATIVE Urine Barbiturates Screen NEGATIVE NEGATIVE Urine Phencyclidine Screen NEGATIVE NEGATIVE Urine Amphetamines Screen NEGATIVE NEGATIVE Urine Benzodiazepines Screen NEGATIVE NEGATIVE Urine Cocaine Screen NEGATIVE NEGATIVE Urine Marijuana (THC) Screen NEGATIVE NEGATIVE Hemoglobin A1c 6.1 H 4.0-6.0 % Estimated Average Glucose (eAG) 128 H 70-126 mg/dL Troponin I High Sensitivity 12 4-50 ng/L C-Reactive Protein, Quantitative 2.80 0.5-3.0 mg/L Procalcitonin < 0.05 L 0.05-0.5 ng/mL Thyroid Stimulating Hormone (TSH) 1.31 0.36-3.74 uIU/mL Human Chorionic Gonadotropin, Quant 9 H 0-5 mIU/mL Current Medications Medications (Trade) Dose Ordered Sig/Loco Route PRN Reason Start Time Stop Time Status Last Admin Dose Admin Acetaminophen (TYLenol 500MG TAB) 500 mg Q6H PRN PO MILD PAIN (1-3) 04/07/25 17:30 04/07/25 17:44 DC Acetaminophen (TYLenol 500MG TAB) 500 mg Q6H PRN PO MILD PAIN (1-3) 04/07/25 17:30 05/07/25 17:29 Amlodipine Besylate (NorvASC 5MG TAB) 10 mg DAILY PO 04/09/25 09:00 05/09/25 08:59 04/09/25 08:41 10 MG Atorvastatin Calcium (LIPItor 40MG) 40 mg HS PO 04/08/25 21:00 05/08/25 20:59 04/08/25 20:16 40 MG Famotidine (Pepcid 20mg Vial) 20 mg Q48H IV 04/08/25 09:00 05/08/25 08:59 04/08/25 09:24 20 MG Heparin Sodium (Porcine) (HEParin 5,000 UNIT VIAL) 5,000 unit Q12H SQ 04/09/25 06:00 05/09/25 05:59 04/09/25 06:49 5,000 UNIT Hydralazine HCl (APRESOLine 20MG INJ) 10 mg Q4H PRN IV ADMINISTER FOR SBP > 160 04/08/25 15:00 05/08/25 14:59 04/09/25 05:47 10 MG Ketorolac Tromethamine (ketOROlac troMETHamine) 1 ml BID OD 04/08/25 21:00 04/09/25 07:16 DC 04/08/25 20:16 1 ML Ketorolac Tromethamine (ketOROlac troMETHamine) KETOROLAC OPHTH 1 DROP OD BID OD 04/09/25 09:00 05/08/25 20:59 04/09/25 08:51 1 ML Labetalol HCl (TRANdate 20MG SYG) 10 mg Q6H PRN IV IF SBP GREATER THAN 170 04/08/25 15:00 05/08/25 14:59 04/08/25 17:12 10 MG Losartan Potassium (CozAAR 25MG TAB) 25 mg BID PO 04/08/25 11:30 04/09/25 06:04 DC 04/08/25 20:16 25 MG Losartan Potassium (CozAAR 25MG TAB) 25 mg BID PO 04/08/25 21:00 05/08/25 20:59 UNV Losartan Potassium (CozAAR 50 mg TAB) 50 mg BID PO 04/09/25 09:00 05/09/25 08:59 04/09/25 08:41 50 MG Nicardipine HCl 25 mg/Sodium Chloride 250 ml @ 0 mls/hr PROTOCOL IV 04/07/25 16:30 05/07/25 16:29 04/07/25 17:23 50 MLS/HR Ondansetron HCl (zoFRAN 4MG INJ) 4 mg Q6H PRN IVP NAUSEA/VOMITING 04/09/25 08:00 05/09/25 07:59 04/09/25 07:39 4 MG Pantoprazole Sodium (PROTonix 40MG TAB) 40 mg DAILY PO 04/09/25 09:00 05/09/25 08:59 04/09/25 08:41 40 MG Prednisolone Acetate (PREDforte 1% DROPS) DOSE= 1 DROP OD DAILY OD 04/09/25 09:00 05/09/25 08:59 04/09/25 08:43 1 DROP Vitamin B Complex/ Vit C/Folic Acid (Nephrovite Tablet) 1 cap DAILY PO 04/09/25 09:00 05/09/25 08:59 04/09/25 08:41 1 CAP DIAGNOSTICS / RADIOLOGY: ASSESSMENT: Hypertensive emergency Acute kidney injury on chronic kidney disease Mild hyperphosphatemia Proteinuria Elevated beta hCG Mild concentric left ventricular hypertrophy and indeterminate diastolic dysfunction Left-sided flank pain, most likely musculoskeletal in nature History of surgery on right eye for partial retinal detachment History of bilateral cataracts History of sleep apnea History of tonsillectomy PLAN: Hypertensive emergency Patient downgraded to Med/Surg W/tele Blood pressure today is 173/76 mm hg On admission blood pressure was 206/93 mm hg (nicardipine drip which is weaned off) Patient started on losartan 25 mg b.i.d. Patient started on amlodipine 10 mg once daily P.r.n. hydralazine and labetalol per protocol Monitor vitals every hour Monitored for signs of acute end-organ damage LINA on CKD Patient's creatinine is 3.5 and BUN is 43 Patient has proteinuria, urine random total protein 331 Continue losartan Mild hyperphosphatemia Phosphate level is 5.1 Nephrology recommended will prescribe sevalamer 800 mg tid if the phosphate remains elevated Will continue to monitor renal function Elevated beta hCG Patient's serum beta HCG was elevated at 9 Pelvic ultrasound was ordered which showed small right ovarian cyst and small fibroids ACR O-RAD to almost certainly benign as per pelvic ultrasound on 04/08/2025 Gynecology referral on outpatient basis after discharge Mild concentric left ventricular hypertrophy and indeterminate diastolic dysfunction Patient has LVEF of 55-60%, mild concentric LVH and indeterminate diastolic dysfunction as per echo on 04/08/2025 Trace pericardial effusion noted Continue to monitor and manage acutely high blood pressure Continue GI prophylaxis with famotidine and DVT prophylaxis We will follow the recommendations from intensive care and Nephrology. ATTESTATION BY PHYSICIAN I have seen and examined the patient. I reviewed the documentation, medical decision making, and treatment plan as noted by the resident provider above. I agree with the findings and plan of care. Bakari Torres MD, LAKSHMI MD Apr 09, 2025 11:47
--- NOTE | 2025-04-09 15:25 | PN ---
[facility] PROGRESS NOTE Date Patient Seen: Apr 09, 2025 Time of Visit: 15:22 Supervising Physician: Dr Sarah Primary Care Physician: [[facility]] Outpatient Specialists: [ ] Inpatient Consults: [[facility]] PROBLEM LIST: Hypertensive emergency Acute kidney injury on chronic kidney disease Hypokalemia Retinopathy of the right eye Cataract Diabetes Hyperlipidemia INTERVAL HISTORY: Patient seen and examined, all labs and imaging have been reviewed, patient off the nicardipine drip but remains hypertensive, we are continuing to use p.r.n. meds to control her blood pressure. Nursing reports no acute events overnight. Patient's GFR is 15, drug screen negative, echo is 60%, renal ultrasound reveals bilateral parenchymal disease. Nephrology pending to see. Patient updated at bedside. Discussion with nursing. Plan: Cardiology recs, nephrology recs, Pending renal Dopplers Telemetry Antihypertensives, p.r.n. meds REVIEW OF SYSTEMS: 12 point ROS reviewed with patient. Pertinent positives mentioned above. Otherwise negative. PHYSICAL EXAM: GENERAL: alert, weak, awake oriented x 3 HEENT: EOMI, Sclera non icteric, moist mucosa NECK: Supple, no JVD, trachea midline LUNGS: Clear breath sounds bilaterally. No wheezes HEART: Regular rate and rhythm. Normal S1 and S2, without murmurs ABD: Abdomen soft, nontender. Bowel sounds present EXT: No clubbing cyanosis or edema NEURO: Alert and oriented to person, follows commands Vital Signs (last 8hr) Date Time Temp Pulse Resp B/P (MAP) Pulse Ox O2 Delivery O2 Flow Rate FiO2 04/09/25 13:00 86 17 162/76 99 Room Air 04/09/25 12:00 98.4 103 15 150/112 99 Room Air 04/09/25 11:00 87 14 142/70 99 Room Air 04/09/25 10:00 86 15 151/69 99 Room Air 04/09/25 09:00 82 18 151/69 99 Room Air 04/09/25 08:00 98.4 80 14 158/70 99 Room Air 04/09/25 08:00 98 Room Air* 0 21 LABS: Hematology Labs: Test 04/09/25 04:59 04/08/25 08:18 Range/Units White Blood Count 7.5 4.8-10.8 K/uL Red Blood Count 3.50 L 4.00-5.50 MIL/uL Hemoglobin 10.0 L 12.0-16.0 g/dL Hematocrit 29.6 L 36-48 % Mean Corpuscular Volume 84.6 79-99 fL Mean Corpuscular Hemoglobin 28.6 27.0-33.0 pg Mean Corpuscular Hemoglobin Concent 33.8 32.0-36.0 g/dL Red Cell Distribution Width 13.2 11.0-15.5 % Platelet Count 198 130-400 K/uL Mean Platelet Volume 9.7 7.5-10.5 fL Immature Granulocyte % (Auto) 0.4 0-1 % Neutrophils (%) (Auto) 70.6 40.0-77.0 % Lymphocytes (%) (Auto) 19.7 L 21.0-51.0 % Monocytes (%) (Auto) 6.4 3.0-13.0 % Eosinophils (%) (Auto) 2.4 0.0-8.0 % Basophils (%) (Auto) 0.5 0.0-5.0 % Neutrophils # (Auto) 5.3 1.8-7.7 K/uL Lymphocytes # (Auto) 1.5 1.0-4.8 K/uL Monocytes # (Auto) 0.5 0.1-1.0 K/uL Eosinophils # (Auto) 0.18 0.00-0.70 K/uL Basophils # (Auto) 0.04 0.00-0.20 K/uL Absolute Immature Granulocyte (auto 0.03 0-1 K/uL Nucleated Red Blood Cells 0.0 0.0-0.19 % Reticulocyte Count (auto) 1.50281 0.42-2.23 % Immature Reticulocyte Fraction 7.80 H 0.18-0.48 % Chemistry Labs: Test 04/09/25 04:59 04/08/25 08:18 Range/Units Sodium Level 138 136-145 mmol/L Potassium Level 3.8 3.5-5.1 mmol/L Chloride Level 105 101-111 mmol/L Carbon Dioxide Level 25 21-32 mmol/L Blood Urea Nitrogen 43 H 7-18 mg/dL Creatinine 3.5 H 0.5-1.0 mg/dL Glomerular Filtration Rate Calc 15 >90 mL/min Random Glucose 98 70-105 mg/dL Total Calcium 8.3 L 8.5-10.1 mg/dL Phosphorus Level 5.1 H 2.5-4.9 mg/dL Iron Level 40 L 50-170 mcg/dL Total Iron Binding Capacity 207 L 250-450 mcg/dL Percent Iron Saturation 19.3 L 22-44 % Ferritin 231 H 15-150 ng/mL Vitamin B12 Level 1060 H 193-986 pg/mL DIAGNOSTICS / RADIOLOGY RESULTS: [ ] PLAN NEURO: Minimize central acting medications as possible. Fall Precautions. Well lighted room through the day and minimize interruptions through the night to prevent acute delirium. PULMONARY: Supplemental 02 as needed Titrate Fio2 to keep Spo2 > or = 90% DuoNebs and CPT as needed IS hourly while awake for pulmonary hygiene Out of bed to chair as tolerated CARDIOVASCULAR: Follow hemodynamics. no more than 25% reduction in MAP in first 24 hrs DIPS: [cardene-off] LINES: [ ] GI & NUTRITION: Continue nutritional support Aspirations precautions Prokinetic agents and laxatives as needed KIDNEYS & ELECTROLYTES: Strict monitoring of intake and output Daily weights Avoid nephrotoxic agents Monitor electrolytes and replace as needed ENDOCRINE: Maintain blood glucose between 100-180 at all times. Insulin sliding scale for blood glucose management INFECTIOUS DISEASE: Trend temperature. Montoya-culture if febrile. HEMATOLOGY & COAGULATION: Monitor H&H. Keep Hgb > 7 Transfuse 1 unit of PRBC for Hgb < 7 Transfuse 1 pack of platelets of platelets < 20, 000 Watch for any signs and symptoms of bleeding SKIN: Pressure ulcer prevention per facility protocol Rehab: PT/OT Prophylaxis: GI: [protonix] DVT: [heparin] Code Status: Full Resuscitation Disposition: [ICU] Other: Total patient critical care time 37 minutes, excludes any procedures. Case was discussed with my supervising physician. The above plan was formulated and agreed upon. DAMIEN BENDER Apr 09, 2025 15:25
--- NOTE | 2025-04-09 16:40 | PN ---
FOLLOWUP PROGRESS NOTE SUBJECTIVE: A 54-year-old female with a history of diabetes mellitus and hypertension. She has a history of known chronic renal insufficiency. She initially presented with hypertensive urgency. The patient was found to have elevated BUN and creatinine. She has been weaned off the nicardipine. She remains on her antihypertensive medications. Laboratory values do reveal significant renal dysfunction and she is being seen as a followup visit for all of the above. REVIEW OF SYSTEMS: CONSTITUTIONAL: She is feeling weak and tired. HEENT: No change in vision. No change in hearing. CARDIOVASCULAR: No current chest pain or palpitations. PULMONARY: She denies any shortness of breath. GASTROINTESTINAL: The patient is tolerating a diet. MUSCULOSKELETAL: Complaints of weakness. PHYSICAL EXAMINATION: VITAL SIGNS: Blood pressure is 148/87, pulse in the 80s, afebrile. GENERAL: She is a chronically ill, much older than appearing female, lying in bed on the medical floor. HEENT: Head is atraumatic. Pupils are equal, round, reactive to light. Oropharynx is without exudate. Nares clear. NECK: There is no JVP. There is no thyromegaly. No masses. CARDIOVASCULAR: Regular. There is no S3 or S4 gallop. LUNGS: Coarse with equal thoracic movement. ABDOMEN: Soft, nondistended and nontender. EXTREMITIES: Reveal no clubbing or cyanosis. NEUROLOGICAL: She is awake. She is alert. LABORATORY DATA: Hemoglobin 10, hematocrit 29, white count 7000. BUN 43, creatinine 3.5. Iron levels are noted. IMPRESSION: * Hypertensive urgency. * Acute on chronic renal failure. * Diabetes mellitus. * History of anemia. PLAN: The patient's blood pressure is under better control. Medications continue to be adjusted. The patient has been weaned off the nicardipine. She is for transfer out to medical floor. She will be given a dose of Venofer for the anemia and we will follow closely. She does have significant chronic renal insufficiency. No need for renal replacement therapy. We will follow closely. TID: [id number] RECEIPT: [id number]
[2025-04-10] VITALS: BP 165/71; PULSE 88; RESP 13; TEMP 98.6
[2025-04-10 04:00] VITALS: BP 148/73; PULSE 71; RESP 15; TEMP 98.3
--- NOTE | 2025-04-10 04:10 | NUR ---
Report given to EMMA Fair all questions answered
--- NOTE | 2025-04-10 04:25 | NUR ---
Transferred patient transferred via wheelchair to room 404 with telemetry pack. patient is awake alert and oriented denies chest pain or shortness of breath.
[2025-04-10 04:30] VITALS: BP 161/84; PULSE 84; RESP 18; TEMP 98.4
--- NOTE | 2025-04-10 05:07 | HMCIMG ---
EXAMINATION: ULTRASOUND EXAMINATION OF THE KIDNEYS WITH SPECTRAL DOPPLER OF THE RENAL VESSELS. CLINICAL HISTORY: Hypertension. COMPARISON: Ultrasound of the retroperitoneum dated 04/07/2025. TECHNIQUE: Grayscale and color ultrasound images of the kidneys, and spectral Doppler of the renal arteries are submitted. FINDINGS: The kidneys are normal in caliber, the right kidney measures 10.5 x 5.1 x 4.7 cm and the left kidney measures 11.6 x 5.0 x 4.6 cm in craniocaudal, AP, and transverse dimensions respectively. There is normal renal cortical thickness, and slightly increased cortical echogenicity. There is no renal calculus, mass, or hydronephrosis. There is a simple cortical cyst that measures 3.1 x 2.6 x 3.4 cm in the right renal upper pole. Right Peak systolic velocities within the proximal, mid, and distal main right renal artery are 175, 139, and 156 cm/s respectively (resistive index of 0.92, 0.77, and 0.83). Peak systolic velocities within the right intrarenal upper, mid, and lower pole arteries are 34, 69, and 40 cm/s respectively (resistive index of 0.51, 0.73, and 0.67). Left Peak systolic velocities within the proximal, mid, and distal main left renal artery are 183, 211, and 359 cm/s respectively (resistive index of 0.70, 0.82, and 0.86). Peak systolic velocities within the left intrarenal upper, mid, and lower pole arteries are 69, 30, and 33 cm/s respectively (resistive index of 0.67, 0.56, and 0.58). Peak systolic velocity within the abdominal aorta at the level of the renal arteries is 126 cm/s Right renal to aortic ratio: 1.4 Left renal to aortic ratio: 2.8 The urinary bladder is partially distended with normal wall thickness (0.41 cm). There are no calculi in the urinaty bladder. IMPRESSION: Increased velocities in the left main renal arteries with renal to aortic ratio of 2.8, reflecting less than 60% stenosis. Right renal simple cortical cyst. Slightly increased renal cortical echogencity. Recommend correlation with laboratory parameters. /[place]
[2025-04-10 05:59] LABS: NUCLEATED RED BLOOD CELLS 0.0 % (0.0-0.19); PLATELET COUNT (AUTO) 173.0 K/uL (130-400); RED BLOOD CELL COUNT(AUTO) 3.26 MIL/uL (4.00-5.50); RED CELL DISTRIBUTION WIDTH 13.7 % (11.0-15.5); WHITE BLOOD COUNT (AUTO) 6.9 K/uL (4.8-10.8)
[2025-04-10 06:10] LABS: CREATININE 3.7 mg/dL (0.5-1.0); GLOMERULAR FILTR. RATE CALC 14.0 mL/min (>90); GLUCOSE,RANDOM 100.0 mg/dL (70-105); SODIUM SERUM 137.0 mmol/L (136-145); UREA NITROGEN, BLOOD 43.0 mg/dL (7-18)
[2025-04-10 08:00] VITALS: BP 160/83; PULSE 83; RESP 17; TEMP 97.8; O2SAT 97
[2025-04-10] MEDS ORDERED: CARV12.511 PO (12:50)
[2025-04-10] MEDS ORDERED: AMLO-258 PO (12:52)
[2025-04-10] MEDS ORDERED: LOSA50TA64 PO (12:52)
--- NOTE | 2025-04-10 13:18 | PN ---
NEPHROLOGY PROGRESS NOTE Date/Time Patient Seen: Apr 10, 2025 SUBJECTIVE: This is a 54-year-old female with a history of diabetes mellitus and hypertension. She has a history of known chronic renal insufficiency. She initially presented with hypertensive urgency. The patient was found to have elevated BUN and creatinine. She has been weaned off the nicardipine. She remains on her antihypertensive medications. Laboratory values do reveal significant renal dysfunction and she is being seen as a followup visit for all of the above. Renal function remains elevated Electrolytes are stable. Blood pressure is under better control. She was seen in the medical floor, in no acute distress REVIEW OF SYSTEMS: GENERAL: Negative for any nausea, vomiting, fevers, chills, or weight loss. NEUROLOGIC: Negative for any blurry vision, blind spots, double vision, facial asymmetry, dysphagia, dysarthria, hemiparesis, hemisensory deficits, vertigo, ataxia. HEENT: Negative for any head trauma, neck trauma, neck stiffness, photophobia, phonophobia, sinusitis, rhinitis. CARDIAC: Negative for any chest pain, dyspnea on exertion, paroxysmal nocturnal dyspnea, peripheral edema. PULMONARY: Negative for any shortness of breath, wheezing, COPD, or TB exposure. GASTROINTESTINAL: Negative for any abdominal pain, nausea, vomiting, bright red blood per rectum, melena. GENITOURINARY: Negative for any dysuria, hematuria, incontinence. INTEGUMENTARY: Negative for any rashes, cuts, insect bites. RHEUMATOLOGIC: Negative for any joint pains, photosensitive rashes, history of vasculitis or kidney problems. HEMATOLOGIC: Negative for any abnormal bruising, frequent infections or bleeding. Vital Signs (last 8hr) Date Time Temp Pulse Resp B/P (MAP) Pulse Ox O2 Delivery O2 Flow Rate FiO2 04/10/25 08:00 97.9 83 17 160/83 97 Room Air PHYSICAL EXAM: GENERAL: Alert and oriented x 3. No acute distress. Well-nourished. EYES: EOMI. Anicteric. HENT: Moist mucous membranes. No scleral icterus. No cervical lymphadenopathy. LUNGS: Clear to auscultation bilaterally. No accessory muscle use. CARDIOVASCULAR: Regular rate and rhythm. No murmur. No JVD. ABDOMEN: Soft, non-tender and non-distended. No palpable masses. EXTREMITIES: No edema. Non-tender. SKIN: No rashes or lesions. Warm. NEUROLOGIC: No focal neurological deficits. CN II-XII grossly intact, but not individually tested. PSYCHIATRIC: Cooperative. Appropriate mood and affect. Current Medications Medications (Trade) Dose Ordered Sig/Loco Route PRN Reason Start Time Stop Time Status Last Admin Dose Admin Acetaminophen (TYLenol 500MG TAB) 500 mg Q6H PRN PO MILD PAIN (1-3) 04/07/25 17:30 04/07/25 17:44 DC Acetaminophen (TYLenol 500MG TAB) 500 mg Q6H PRN PO MILD PAIN (1-3) 04/07/25 17:30 05/07/25 17:29 Amlodipine Besylate (NorvASC 5MG TAB) 10 mg DAILY PO 04/09/25 09:00 05/09/25 08:59 04/10/25 08:48 10 MG Atorvastatin Calcium (LIPItor 40MG) 40 mg HS PO 04/08/25 21:00 05/08/25 20:59 04/09/25 20:26 40 MG Famotidine (Pepcid 20mg Vial) 20 mg Q48H IV 04/08/25 09:00 05/08/25 08:59 04/10/25 08:48 20 MG Heparin Sodium (Porcine) (HEParin 5,000 UNIT VIAL) 5,000 unit Q12H SQ 04/09/25 06:00 05/09/25 05:59 04/10/25 05:42 5,000 UNIT Hydralazine HCl (APRESOLine 20MG INJ) 10 mg Q4H PRN IV ADMINISTER FOR SBP > 160 04/08/25 15:00 05/08/25 14:59 04/09/25 18:13 10 MG Ketorolac Tromethamine (ketOROlac troMETHamine) 1 ml BID OD 04/08/25 21:00 04/09/25 07:16 DC 04/08/25 20:16 1 ML Ketorolac Tromethamine (ketOROlac troMETHamine) KETOROLAC OPHTH 1 DROP OD BID OD 04/09/25 09:00 05/08/25 20:59 04/09/25 20:26 1 ML Labetalol HCl (TRANdate 20MG SYG) 10 mg Q6H PRN IV IF SBP GREATER THAN 170 04/08/25 15:00 05/08/25 14:59 04/08/25 17:12 10 MG Losartan Potassium (CozAAR 25MG TAB) 25 mg BID PO 04/08/25 11:30 04/09/25 06:04 DC 04/08/25 20:16 25 MG Losartan Potassium (CozAAR 25MG TAB) 25 mg BID PO 04/08/25 21:00 05/08/25 20:59 UNV Losartan Potassium (CozAAR 50 mg TAB) 50 mg BID PO 04/09/25 09:00 05/09/25 08:59 04/10/25 08:48 50 MG Metoprolol Tartrate (loprESSOR) 25 mg BID PO 04/09/25 21:00 05/09/25 20:59 04/10/25 08:48 25 MG Nicardipine HCl 25 mg/Sodium Chloride 250 ml @ 0 mls/hr PROTOCOL IV 04/07/25 16:30 04/10/25 12:46 DC 04/07/25 17:23 50 MLS/HR Ondansetron HCl (zoFRAN 4MG INJ) 4 mg Q6H PRN IVP NAUSEA/VOMITING 04/09/25 08:00 05/09/25 07:59 04/09/25 07:39 4 MG Pantoprazole Sodium (PROTonix 40MG TAB) 40 mg DAILY PO 04/09/25 09:00 05/09/25 08:59 04/10/25 08:48 40 MG Prednisolone Acetate (PREDforte 1% DROPS) DOSE= 1 DROP OD DAILY OD 04/09/25 09:00 05/09/25 08:59 04/10/25 08:49 1 DROP Vitamin B Complex/ Vit C/Folic Acid (Nephrovite Tablet) 1 cap DAILY PO 04/09/25 09:00 05/09/25 08:59 04/10/25 08:48 1 CAP LABORATORY: [ ] Hematology Labs: Test 04/10/25 05:31 04/09/25 04:59 Range/Units White Blood Count 6.9 4.8-10.8 K/uL Red Blood Count 3.26 L 4.00-5.50 MIL/uL Hemoglobin 9.4 L 12.0-16.0 g/dL Hematocrit 28.4 L 36-48 % Mean Corpuscular Volume 87.1 79-99 fL Mean Corpuscular Hemoglobin 28.8 27.0-33.0 pg Mean Corpuscular Hemoglobin Concent 33.1 32.0-36.0 g/dL Red Cell Distribution Width 13.7 11.0-15.5 % Platelet Count 173 130-400 K/uL Mean Platelet Volume 10.5 7.5-10.5 fL Nucleated Red Blood Cells 0.0 0.0-0.19 % Immature Granulocyte % (Auto) 0.4 0-1 % Neutrophils (%) (Auto) 70.6 40.0-77.0 % Lymphocytes (%) (Auto) 19.7 L 21.0-51.0 % Monocytes (%) (Auto) 6.4 3.0-13.0 % Eosinophils (%) (Auto) 2.4 0.0-8.0 % Basophils (%) (Auto) 0.5 0.0-5.0 % Neutrophils # (Auto) 5.3 1.8-7.7 K/uL Lymphocytes # (Auto) 1.5 1.0-4.8 K/uL Monocytes # (Auto) 0.5 0.1-1.0 K/uL Eosinophils # (Auto) 0.18 0.00-0.70 K/uL Basophils # (Auto) 0.04 0.00-0.20 K/uL Absolute Immature Granulocyte (auto 0.03 0-1 K/uL Chemistry Labs: Test 04/10/25 05:31 04/09/25 04:59 Range/Units Sodium Level 137 136-145 mmol/L Potassium Level 4.3 3.5-5.1 mmol/L Chloride Level 104 101-111 mmol/L Carbon Dioxide Level 24 21-32 mmol/L Blood Urea Nitrogen 43 H 7-18 mg/dL Creatinine 3.7 H 0.5-1.0 mg/dL Glomerular Filtration Rate Calc 14 >90 mL/min Random Glucose 100 70-105 mg/dL Total Calcium 8.7 8.5-10.1 mg/dL Phosphorus Level 5.1 H 2.5-4.9 mg/dL DIAGNOSTICS / RADIOLOGY: [place] [address] [place] [id number] IMAGING REPORT Signed PATIENT: PAIGE BOLTON MR#: [id number] : 1970 SEX: F AGE: 54 LOCATION: [facility] ORDER [id number] STATUS: ADM IN REPORT#: [id number] SERVICE 0553 REASON: hypertension ORDERING PHYSICIAN: MEÑO FABIAN PROCEDURE: RENARD ART DO - US RENAL ARTERY DOPPLER EXAMINATION: ULTRASOUND EXAMINATION OF THE KIDNEYS WITH SPECTRAL DOPPLER OF THE RENAL VESSELS. CLINICAL HISTORY: Hypertension. COMPARISON: Ultrasound of the retroperitoneum dated 04/07/2025. TECHNIQUE: Grayscale and color ultrasound images of the kidneys, and spectral Doppler of the renal arteries are submitted. FINDINGS: The kidneys are normal in caliber, the right kidney measures 10.5 x 5.1 x 4.7 cm and the left kidney measures 11.6 x 5.0 x 4.6 cm in craniocaudal, AP, and transverse dimensions respectively. There is normal renal cortical thickness, and slightly increased cortical echogenicity. There is no renal calculus, mass, or hydronephrosis. There is a simple cortical cyst that measures 3.1 x 2.6 x 3.4 cm in the right renal upper pole. Right Peak systolic velocities within the proximal, mid, and distal main right renal artery are 175, 139, and 156 cm/s respectively (resistive index of 0.92, 0.77, and 0.83). Peak systolic velocities within the right intrarenal upper, mid, and lower pole arteries are 34, 69, and 40 cm/s respectively (resistive index of 0.51, 0.73, and 0.67). Left Peak systolic velocities within the proximal, mid, and distal main left renal artery are 183, 211, and 359 cm/s respectively (resistive index of 0.70, 0.82, and 0.86). Peak systolic velocities within the left intrarenal upper, mid, and lower pole arteries are 69, 30, and 33 cm/s respectively (resistive index of 0.67, 0.56, and 0.58). Peak systolic velocity within the abdominal aorta at the level of the renal arteries is 126 cm/s Right renal to aortic ratio: 1.4 Left renal to aortic ratio: 2.8 The urinary bladder is partially distended with normal wall thickness (0.41 cm). There are no calculi in the urinaty bladder. IMPRESSION: Increased velocities in the left main renal arteries with renal to aortic ratio of 2.8, reflecting less than 60% stenosis. Right renal simple cortical cyst. Slightly increased renal cortical echogencity. Recommend correlation with laboratory parameters. /[place] DICTATED BY: DARRYN BONILLA MD DATE: 04/10/25604 ELECTRONICALLY SIGNED BY: DARRYN BONILLA MD DATE: 04/10/25604 PATIENT: PAIGE BOLTON MR#: [id number] : 1970 SEX: F AGE: 54 LOCATION: [facility] ORDER 124 STATUS: ADM IN REPORT#: [id number] SERVICE 1243 REASON: htn emergency ORDERING PHYSICIAN: MEÑO FABIAN PROCEDURE: ECHO CMP - ECHO 2-D COMPLETE APPROVED REPORT EXAM: Two-dimensional and M-mode echocardiogram with Doppler and color Doppler. INDICATION ICD: HTN emergency 2D Dimensions RVDd 3.6 cm LVEF(%) 68.0 (>50%) LVED Vol(simp.) 82.1 mL IVSd 1.2 (0.7-1.1cm) FS(%) 37 % LVES Vol(simp.) 33.5 mL LVDd 3.9 (3.8-5.6cm) LA (2D) 3.9 (1.6-4.0cm) LVEF(%, simp.) 59 % PWd 1.3 (0.7-1.1cm) Ao Root(2D) 2.9 (2.0-3.7cm) LA ESV INDEX (BP) 31.26 mL/m2 LVDs 2.4 (2.5-4.0cm) LVOT diam 1.9 (1.8-2.4cm) IVC diam 1.7 cm Deformation Strain Apical 4 -14.9 % Apical 2 -16.3 % Apical 3 -14.0 % Global Strain -15.0 % M-Mode Dimensions EPSS 0.5 cm LA (MM) 3.8 (1.6-4.0cm) Ao Root(MM) 2.6 (2.0-3.7cm) Aortic Valve AoV Vmax 1.0 m/s Ao Peak GR 3.9 mmHg LVOT Vmax 0.7 m/s AoV VTI 0.3 m Ao Mean GR 2.3 mmHg LVOT VTI 0.18 m EDDIE (VMAX) 2.02 cm2 EDDIE (VTI) 1.9 cm2 Mitral Valve MV E Vmax 82.2 cm/s DECEL Time 195 ms MV A Vmax 68.6 cm/s P 1/2 T 83 ms E/A ratio 1.2 MVA (PHT) 2.6 cm2 TDI E/E' Medial 19.1 E/E' Lateral 12.7 Medial E' Peak V 4.31 cm/s Lateral E' Peak V 6.46 cm/s Pulmonary Valve PV Vmax 0.8 m/s PV VTI 0.20 m PV Mean GR 1.5 mmHg PV Peak GR 2.5 mmHg Left Ventricle The left ventricle is normal size. Mild concentric left ventricular hypertrophy. LVEF is 55-60%. Indeterminate diastolic dysfunction. Right Ventricle The right ventricle is normal size. The right ventricular systolic function is normal. Atria The left atrium size is normal. The right atrium size is normal. Aortic Valve The aortic valve is normal in structure. No aortic regurgitation is present. There is no aortic valvular stenosis. Mitral Valve The mitral valve is normal in structure. There is no mitral valve regurgitation noted. There is no mitral valve stenosis. Tricuspid Valve The tricuspid valve is normal in structure. There is no tricuspid valve regurgitation noted. Pulmonic Valve The pulmonary valve is normal in structure. There is no pulmonic valvular re gurgitation. Great Vessels The aortic root is normal in size. The IVC is normal in size and collapses >50% with inspiration. Pericardium There is trace pericardial effusion. Conclusion The left ventricle is normal size. Mild concentric left ventricular hypertrophy. LVEF is 55-60%. Indeterminate diastolic dysfunction. The right ventricle is normal size. The right ventricular systolic function is normal. The left atrium size is normal. The right atrium size is normal. No valvular pathology. There is trace pericardial effusion. DICTATED BY: JOSH TRAYLOR MD DATE: 04/08/25 1414 ELECTRONICALLY SIGNED BY: JOSH TRAYLOR MD DATE: 04/08/25 165 PATIENT: PAIGE BOLTON MR#: [id number] : 1970 SEX: F AGE: 54 LOCATION: [facility] ORDER 12 STATUS: ADM IN REPORT#: [id number] SERVICE 11 REASON: positive beta HCG, assess ovary and uterus ORDERING PHYSICIAN: AIMEE MEDINA MD PROCEDURE: PELVCOMP - US PELVIC NON-OB COMP PELVIC ULTRASOUND INDICATION: positive beta HCG, assess ovary and uterus TECHNIQUE: Pelvic ultrasound was performed by a senior clerk and reviewed by a radiologist. FINDINGS: Uterus: 8.4 x 3.0 x 4.4 cm. There is to small fibroids seen in the uterus in the fundal region anteriorly measures 0.6 x 0.3 x 0.6 cm. In the posterior uterus there is a fibroid measuring 0.4 x 0.3 x 0.57.. There is small amount of fluid seen in the cervix. Endometrial complex: 0.2 cm. Right ovary measures 1.7 x 1.1 x 1.5 cm. There is a small right ovarian simple cyst measuring 0.6 x 0.7 to 0.6 cm.. Left ovary obscured by overlying bowel gas.. Cul-de-sac: Unremarkable. IMPRESSION: Small fibroids as described above Small right ovarian cyst FINAL ASSESSMENT: ACR: O-RAD- 2 Almost certainly benign. DICTATED BY: NASH ORTEZ MD DATE: 04/08/25 1022 ELECTRONICALLY SIGNED BY: NASH ORTEZ MD DATE: 04/08/25 1028 PATIENT: PAIGE BOLTON MR#: [id number] : 1970 SEX: F AGE: 54 LOCATION: [facility] ORDER 42 STATUS: ADM IN REPORT#: [id number] SERVICE 41 REASON: lina on CKD ORDERING PHYSICIAN: AIMEE MEDINA MD PROCEDURE: RENAL - US RENAL SONOGRAM EXAMINATION: ULTRASOUND OF THE RETROPERITONEUM. CLINICAL HISTORY: LINA on CKD. COMPARISON: None. TECHNIQUE: Real-time grayscale ultrasound images of the kidneys. FINDINGS: The kidneys are normal in caliber, the right kidney measures 9.5 x 5.1 x 5.3 cm and the left kidney measures 10.9 x 4.6 x 4.9 cm in its craniocaudal, AP, and transverse dimensions respectively. There is normal renal cortical thickness, and increased cortical echogenicity. There is no renal calculus or hydronephrosis. There is a simple cortical cyst that measures 3.1 x 2.7 x 2.6 cm in the upper pole of the right kidney. The urinary bladder is normal in caliber and wall thickness. There are no calculi in the urinary bladder. IMPRESSION: Bilateral renal parenchymal disease. Right renal simple cortical cyst. /[place] DICTATED BY: MARINO MONTALVO Jr., MD DATE: 04/07/252232 ELECTRONICALLY SIGNED BY: MARINO MONTALVO Jr., MD DATE: 04/07/252232 PATIENT: PAIGE BOLTON MR#: [id number] : 1970 SEX: F AGE: 54 LOCATION: [facility] ORDER 21 STATUS: [facility] REPORT#: [id number] SERVICE 1321 REASON: htn ORDERING PHYSICIAN: LORRAINE GUSTAFSON MD PROCEDURE: CXR1VW - CHEST 1VW CHEST 1VW REASON: htn COMPARISON: None. FINDINGS: Single view of the chest was obtained. Lungs are clear. Heart size is normal. There is no pulmonary vascular congestion. Mediastinum and bony thorax appear unremarkable. IMPRESSION: 1. Normal single view chest x-ray. DICTATED BY: NASH ORTEZ MD DATE: 04/07/251418 ELECTRONICALLY SIGNED BY: NASH ORTEZ MD DATE: 04/07/251421 ASSESSMENT: Acute on chronic renal failure Hypertensive emergency Mild hyperphosphatemia Proteinuria Elevated beta hCG Mild concentric left ventricular hypertrophy and indeterminate diastolic dysfunction Left-sided flank pain, most likely musculoskeletal in nature History of surgery on right eye for partial retinal detachment History of bilateral cataracts History of sleep apnea History of tonsillectomy PLAN: Labs, diagnostic, radiologic exams reviewed and interpreted by myself and supervising physician. We have reviewed external records in detail Recommend gradual blood pressure control, continue with the antihypertensive medication Require close monitoring of renal function and electrolytes Order CBC, CMP,and electrolytes in am BiPAP as necessary, for respiratory distress Monitor blood pressure adjust medication doses as needed Avoid hypotensive episodes May use Dilaudid 0.5 mg IV every 6 hours as needed for severe pain Monitor blood sugars Strict intake, output, and daily weight should be monitored Please renally adjust medications Avoid nephrotoxic and nonsteroidal drugs Avoid contrast if possible Will continue to monitor renal function, anemia, electrolytes Treatment plan discussed with patient Questions were answered We have discussed with the other team physicians in detail about the care plan We will continue to monitor the patient closely ATTESTATION BY PHYSICIAN I have seen and examined the patient. I reviewed the documentation, medical de cision making, and treatment plan as noted by the mid-level provider above. I agree with the findings and plan of care. KARLA GONZALEZ MD, [facility] Apr 10, 2025 13:18
--- NOTE | 2025-04-10 14:51 | DS ---
Discharge Summary Hospital Course Summary: 54-year-old female with past medical history of hypertension, CKD who presented to the hospital secondary to elevated blood pressure. Patient states she was checking her blood pressure at home which was ranging in the upper 200s with peak reading of 228/124. Patient states she was recently diagnosed with hypertension by her primary care provider. 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 She followed up with her primary care provider who started patient on losartan. She started taking losartan around a week ago and was taking the medication at bedtime. She noted that her blood pressure still remained while taking the medication. She denies any chest pain, shortness of breath, abdominal pain, nausea, vomiting, headache, upper or lower extremity weakness. She complains of pain in the left flank area which radiates to left lower quadrant. She denies any changes in her urination and denied any hematuria. Denied any falls, syncopal episode. Labs in the ED were notable for white count of 7.1, hemoglobin was 10.9, platelet count was 196 K, sodium was 138, potassium was 4.0, creatinine was 3.3, blood glucose was Kane, troponin was negative x1 Chest x-ray showed No acute infiltrates Presentation to the ED patient's temperature was 98.8, blood pressure was noted to be 206/93, heart rate was in the 80s, patient was saturating 98% on room air. In the ED patient was given clonidine without improvement in blood pressure. She was started on nicardipine drip in the ED. Patient was admitted on 04/07/2025 to the hospitalist service for management of her hypertensive urgency. After stabilizing her blood pressure the nicardipine was discontinued and the patient was started on losartan 50 mg b.i.d. and amlodipine 10 mg b.i.d. based on Nephrology recommendations. Patient was worked up for secondary cause of hypertension due to the relatively new nature of her hypertension. Renal ultrasound showed renal artery stenosis of 60% of the left kidney. Patient was thus diagnosed with renal artery stenosis. Pelvic ultrasound demonstrated an incidental finding of numerous small fibroids in her uterus and a right-sided ovarian cyst. Pulmonary and Critical Care Medicine was also consulted while the patient was in the ED they recommended continuation of the current management protocol in the hospital. By 04/10/2025 her blood pressure was still elevated around 140s, and the patient will be started on carvedilol 12.5 mg b.i.d. on an outpatient basis. On 04/10/2025, the patient was clinically stable to be discharged. She will be discharged with advice to follow up with her primary care physician within 3-5 days. She will also be advised to follow up with Cardiology and nephrology within 2 weeks for management of her hypertension and her chronic kidney disease. Physician Assistant Surgery(s): Consultants; nephrology IMPRESSION: * Hypertensive urgency. * Acute on chronic renal failure. * Diabetes mellitus. * History of anemia. PLAN: The patient's blood pressure is under better control. Medications continue to be adjusted. The patient has been weaned off the nicardipine. She is for transfer out to medical floor. She will be given a dose of Venofer for the anemia and we will follow closely. She does have significant chronic renal insufficiency. No need for renal replacement therapy. We will follow closely. Consultants; pulmonary and Critical Care Medicine INTERVAL HISTORY: Patient seen and examined, all labs and imaging have been reviewed, patient off the nicardipine drip but remains hypertensive, we are continuing to use p.r.n. meds to control her blood pressure. Nursing reports no acute events overnight. Patient's GFR is 15, drug screen negative, echo is 60%, renal ultrasound reveals bilateral parenchymal disease. Nephrology pending to see. Patient updated at bedside. Discussion with nursing. Plan: Cardiology recs, nephrology recs, Pending renal Dopplers Telemetry Antihypertensives, p.r.n. meds Procedure(s): [place] [address] [place] [id number] IMAGING REPORT Signed PATIENT: PAIGE BOLTON MR#: [id number] : 1970 SEX: F AGE: 54 LOCATION: [facility] ORDER 1322 STATUS: REG ER REPORT#: [id number] SERVICE 1321 REASON: htn ORDERING PHYSICIAN: LORRAINE GUSTAFSON MD PROCEDURE: CXR1VW - CHEST 1VW CHEST 1VW REASON: htn COMPARISON: None. FINDINGS: Single view of the chest was obtained. Lungs are clear. Heart size is normal. There is no pulmonary vascular congestion. Mediastinum and bony thorax appear unremarkable. IMPRESSION: 1. Normal single view chest x-ray. DICTATED BY: NASH ORTEZ MD DATE: 04/07/251418 ELECTRONICALLY SIGNED BY: NASH ORTEZ MD DATE: 04/07/25 142 [facility] [address] [place] [id number] IMAGING REPORT Signed PATIENT: PAIGE BOLTON MR#: [id number] : 1970 SEX: F AGE: 54 LOCATION: [facility] ORDER 42 STATUS: ADM IN REPORT#: [id number] SERVICE 41 REASON: lina on CKD ORDERING PHYSICIAN: AIMEE MEDINA MD PROCEDURE: RENAL - US RENAL SONOGRAM EXAMINATION: ULTRASOUND OF THE RETROPERITONEUM. CLINICAL HISTORY: LINA on CKD. COMPARISON: None. TECHNIQUE: Real-time grayscale ultrasound images of the kidneys. FINDINGS: The kidneys are normal in caliber, the right kidney measures 9.5 x 5.1 x 5.3 cm and the left kidney measures 10.9 x 4.6 x 4.9 cm in its craniocaudal, AP, and transverse dimensions respectively. There is normal renal cortical thickness, and increased cortical echogenicity. There is no renal calculus or hydronephrosis. There is a simple cortical cyst that measures 3.1 x 2.7 x 2.6 cm in the upper pole of the right kidney. The urinary bladder is normal in caliber and wall thickness. There are no calculi in the urinary bladder. IMPRESSION: Bilateral renal parenchymal disease. Right renal simple cortical cyst. /[facility] DICTATED BY: MARINO MONTALVO Jr., MD DATE: 04/07/252232 ELECTRONICALLY SIGNED BY: MARINO MONTALVO Jr., MD DATE: 04/07/252232 [facility] [address] [place] [id number] IMAGING REPORT Signed PATIENT: PAIGE BOLTON MR#: [id number] : 1970 SEX: F AGE: 54 LOCATION: [facility] ORDER 12 STATUS: ADM IN REPORT#: [id number] SERVICE 11 REASON: positive beta HCG, assess ovary and uterus ORDERING PHYSICIAN: AIMEE MEDINA MD PROCEDURE: PELVCOMP - US PELVIC NON-OB COMP PELVIC ULTRASOUND INDICATION: positive beta HCG, assess ovary and uterus TECHNIQUE: Pelvic ultrasound was performed by a fiber picker and reviewed by a radiologist. FINDINGS: Uterus: 8.4 x 3.0 x 4.4 cm. There is to small fibroids seen in the uterus in the fundal region anteriorly measures 0.6 x 0.3 x 0.6 cm. In the posterior uterus there is a fibroid measuring 0.4 x 0.3 x 0.57.. There is small amount of fluid seen in the cervix. Endometrial complex: 0.2 cm. Right ovary measures 1.7 x 1.1 x 1.5 cm. There is a small right ovarian simple cyst measuring 0.6 x 0.7 to 0.6 cm.. Left ovary obscured by overlying bowel gas.. Cul-de-sac: Unremarkable. IMPRESSION: Small fibroids as described above Small right ovarian cyst FINAL ASSESSMENT: ACR: O-RAD- 2 Almost certainly benign. DICTATED BY: NASH ORTEZ MD DATE: 04/08/25 1022 ELECTRONICALLY SIGNED BY: NASH ORTEZ MD DATE: 04/08/25 [address] [place] [id number] IMAGING REPORT Signed PATIENT: PAIGE BOLTON MR#: [id number] : 1970 SEX: F AGE: 54 LOCATION: [facility] ORDER 43 STATUS: ADM IN REPORT#: [id number] SERVICE 42 REASON: htn emergency ORDERING PHYSICIAN: MEÑO FABIAN PROCEDURE: ECHO CMP - ECHO 2-D COMPLETE APPROVED REPORT EXAM: Two-dimensional and M-mode echocardiogram with Doppler and color Doppler. INDICATION ICD: HTN emergency 2D Dimensions RVDd 3.6 cm LVEF(%) 68.0 (>50%) LVED Vol(simp.) 82.1 mL IVSd 1.2 (0.7-1.1cm) FS(%) 37 % LVES Vol(simp.) 33.5 mL LVDd 3.9 (3.8-5.6cm) LA (2D) 3.9 (1.6-4.0cm) LVEF(%, simp.) 59 % PWd 1.3 (0.7-1.1cm) Ao Root(2D) 2.9 (2.0-3.7cm) LA ESV INDEX (BP) 31.26 mL/m2 LVDs 2.4 (2.5-4.0cm) LVOT diam 1.9 (1.8-2.4cm) IVC diam 1.7 cm Deformation Strain Apical 4 -14.9 % Apical 2 -16.3 % Apical 3 -14.0 % Global Strain -15.0 % M-Mode Dimensions EPSS 0.5 cm LA (MM) 3.8 (1.6-4.0cm) Ao Root(MM) 2.6 (2.0-3.7cm) Aortic Valve AoV Vmax 1.0 m/s Ao Peak GR 3.9 mmHg LVOT Vmax 0.7 m/s AoV VTI 0.3 m Ao Mean GR 2.3 mmHg LVOT VTI 0.18 m EDDIE (VMAX) 2.02 cm2 EDDIE (VTI) 1.9 cm2 Mitral Valve MV E Vmax 82.2 cm/s DECEL Time 195 ms MV A Vmax 68.6 cm/s P 1/2 T 83 ms E/A ratio 1.2 MVA (PHT) 2.6 cm2 TDI E/E' Medial 19.1 E/E' Lateral 12.7 Medial E' Peak V 4.31 cm/s Lateral E' Peak V 6.46 cm/s Pulmonary Valve PV Vmax 0.8 m/s PV VTI 0.20 m PV Mean GR 1.5 mmHg PV Peak GR 2.5 mmHg Left Ventricle The left ventricle is normal size. Mild concentric left ventricular hypertrophy. LVEF is 55-60%. Indeterminate diastolic dysfunction. Right Ventricle The right ventricle is normal size. The right ventricular systolic function is normal. Atria The left atrium size is normal. The right atrium size is normal. Aortic Valve The aortic valve is normal in structure. No aortic regurgitation is present. There is no aortic valvular stenosis. Mitral Valve The mitral valve is normal in structure. There is no mitral valve regurgitation noted. There is no mitral valve stenosis. Tricuspid Valve The tricuspid valve is normal in structure. There is no tricuspid valve regurgitation noted. Pulmonic Valve The pulmonary valve is normal in structure. There is no pulmonic valvular regurgitation. Great Vessels The aortic root is normal in size. The IVC is normal in size and collapses >50% with inspiration. Pericardium There is trace pericardial effusion. Conclusion The left ventricle is normal size. Mild concentric left ventricular hypertrophy. LVEF is 55-60%. Indeterminate diastolic dysfunction. The right ventricle is normal size. The right ventricular systolic function is normal. The left atrium size is normal. The right atrium size is normal. No valvular pathology. There is trace pericardial effusion. DICTATED BY: JOSH TRAYLOR MD DATE: 04/08/25 1414 ELECTRONICALLY SIGNED BY: JOSH TRAYLOR MD DATE: 04/08/25 [address] [place] [address] IMAGING REPORT Signed PATIENT: PAIGE BOLTON MR#: [id number] : 1970 SEX: F AGE: 54 LOCATION: [facility] ORDER 0604 STATUS: ADM IN REPORT#: [id number] SERVICE 0553 REASON: hypertension ORDERING PHYSICIAN: MEÑO FABIAN PROCEDURE: RENARD ART DO - US RENAL ARTERY DOPPLER EXAMINATION: ULTRASOUND EXAMINATION OF THE KIDNEYS WITH SPECTRAL DOPPLER OF THE RENAL VESSELS. CLINICAL HISTORY: Hypertension. COMPARISON: Ultrasound of the retroperitoneum dated 04/07/2025. TECHNIQUE: Grayscale and color ultrasound images of the kidneys, and spectral Doppler of the renal arteries are submitted. FINDINGS: The kidneys are normal in caliber, the right kidney measures 10.5 x 5.1 x 4.7 cm and the left kidney measures 11.6 x 5.0 x 4.6 cm in craniocaudal, AP, and transverse dimensions respectively. There is normal renal cortical thickness, and slightly increased cortical echogenicity. There is no renal calculus, mass, or hydronephrosis. There is a simple cortical cyst that measures 3.1 x 2.6 x 3.4 cm in the right renal upper pole. Right Peak systolic velocities within the proximal, mid, and distal main right renal artery are 175, 139, and 156 cm/s respectively (resistive index of 0.92, 0.77, and 0.83). Peak systolic velocities within the right intrarenal upper, mid, and lower pole arteries are 34, 69, and 40 cm/s respectively (resistive index of 0.51, 0.73, and 0.67). Left Peak systolic velocities within the proximal, mid, and distal main left renal artery are 183, 211, and 359 cm/s respectively (resistive index of 0.70, 0.82, and 0.86). Peak systolic velocities within the left intrarenal upper, mid, and lower pole arteries are 69, 30, and 33 cm/s respectively (resistive index of 0.67, 0.56, and 0.58). Peak systolic velocity within the abdominal aorta at the level of the renal arteries is 126 cm/s Right renal to aortic ratio: 1.4 Left renal to aortic ratio: 2.8 The urinary bladder is partially distended with normal wall thickness (0.41 cm). There are no calculi in the urinaty bladder. IMPRESSION: Increased velocities in the left main renal arteries with renal to aortic ratio of 2.8, reflecting less than 60% stenosis. Right renal simple cortical cyst. Slightly increased renal cortical echogencity. Recommend correlation with laboratory parameters. /[facility] DICTATED BY: DARRYN BONILLA MD DATE: 04/10/25604 ELECTRONICALLY SIGNED BY: DARRYN BONILLA MD DATE: 04/10/25604 Assessment/Plan: ASSESSMENT: Hypertensive emergency Acute kidney injury on chronic kidney disease Mild hyperphosphatemia Proteinuria Elevated beta hCG Multiple small Uterine fibroids Small right ovarian cyst Mild concentric left ventricular hypertrophy and indeterminate diastolic dysfunction Left-sided flank pain, most likely musculoskeletal in nature History of surgery on right eye for partial retinal detachment History of bilateral cataracts History of sleep apnea History of tonsillectomy Discharge Instructions: You were admitted with very high blood pressure (hypertensive urgency) and were found to have renal artery stenosis. Your medications have been adjusted, and you are now safe for discharge. At home, you will take the following medications: -amlodipine 10 mg by mouth once daily. -carvedilol 12.5 mg by mouth twice daily. -losartan 50 mg by mouth twice daily. It is very important to take these medicines exactly as prescribed, without sk ipping doses. Monitor your blood pressure regularly and keep a log to bring to your follow up visits. Please follow up with your lumber kiln operator to manage your kidney condition, your power generation equipment repairer for your heart health, and your primary care physician for co ordination of your care and management of other medical problems. Seek medical attention right away if you develop chest pain, sudden shortness of breath, severe headache, vision changes, weakness, confusion, or very high or very low blood pressure. Home Medications: Reported Medications Ketorolac Tromethamine (Ketorolac Tromethamine) 0.5 % Drops, 1 DROP OD BID for itching, #5 ML 0 Refills 04/08/25 Prednisolone Acetate/Pf (Prednisolone Acet 1% Eye Drop) 1 % Drops.susp, 1 DROP OD DAILY for 30 Days, #5 ML 0 Refills 04/08/25 Folic Acid/Vitamin B Comp W-C (Lisandra-Kumar Tablet) 0.8 Mg Tablet, 0.8 MG PO DAILY, TAB 04/08/25 Rosuvastatin Calcium (Rosuvastatin Calcium) 10 Mg Tablet, 1 TAB PO HS for 30 Days, #30 TAB 0 Refills 04/08/25 Losartan Potassium (Losartan Potassium) 25 Mg Tablet, 1 TAB PO BID for 30 Days, #30 TAB 0 Refills 04/08/25 New Medications: Amlodipine Besylate (Amlodipine Besylate) 10 Mg Tablet 1 TAB PO DAILY for 30 Days, #30 TAB 0 Refills Carvedilol (Carvedilol) 12.5 Mg Tablet 1 TAB PO BID for 30 Days, #60 TAB 0 Refills Losartan Potassium (Losartan Potassium) 50 Mg Tablet 1 TAB PO BID for 30 Days, #60 TAB 0 Refills Continued Medications: Folic Acid/Vitamin B Comp W-C (Lisandra-Kumar Tablet) 0.8 Mg Tablet 0.8 MG PO DAILY, TAB Ketorolac Tromethamine (Ketorolac Tromethamine) 0.5 % Drops 1 DROP OD BID for itching, #5 ML 0 Refills Prednisolone Acetate/Pf (Prednisolone Acet 1% Eye Drop) 1 % Drops.susp 1 DROP OD DAILY for 30 Days, #5 ML 0 Refills Rosuvastatin Calcium (Rosuvastatin Calcium) 10 Mg Tablet 1 TAB PO HS for 30 Days, #30 TAB 0 Refills Discontinued Medications: Losartan Potassium (Losartan Potassium) 25 Mg Tablet 1 TAB PO BID for 30 Days, #30 TAB 0 Refills Time spent arranging discharge: 1-30 minutes ATTESTATION BY PHYSICIAN I have seen and examined the patient. I reviewed the documentation, medical decision making, and treatment plan as noted by the resident provider above. I agree with the findings and plan of care. Thanh Westfall MD, HEMA MD Apr 10, 2025 14:51
--- NOTE | 2025-04-10 16:50 | NUR ---
PT sitting in bed w/ eyes open 0 s/s of distress noted, A&Ox4, able to make needs known. Discharge instructions given to PT verbally and written. PT verbally acknowledged understanding. IV removed intact w/o complications. PT escorted to POV via WC by THERMODYNAMIC PHYSICIST w/o complications.
== END 2025-04-10 16:43 | disposition home or self-care (01) | DRG 305 ==
LOC: EDH 13:05 → EDHIP 17:19 → 2CH 04-08 09:51 → 4AH 04-10 04:29
PROVIDERS: ADMIT Internal Medicine; ATTEND Internal Medicine
DX: I16.1 Hypertensive emergency (principal); N17.9 Acute kidney failure, unspecified; E11.319 Type 2 diabetes mellitus with unspecified diabetic retinopathy without macular edema; E11.22 Type 2 diabetes mellitus with diabetic chronic kidney disease; E78.00 Pure hypercholesterolemia, unspecified; N18.9 Chronic kidney disease, unspecified; I12.9 Hypertensive chronic kidney disease with stage 1 through stage 4 chronic kidney disease, or unspecified chronic kidney disease; I70.1 Atherosclerosis of renal artery; E87.6 Hypokalemia; E83.39 Other disorders of phosphorus metabolism; D64.9 Anemia, unspecified; D25.9 Leiomyoma of uterus, unspecified; Z79.899 Other long term (current) drug therapy; Z56.0 Unemployment, unspecified
CPT/HCPCS: 36415; 71045; 76770; 76856; 76857; 80048; 80305; 81001; 82570; 82607; 82728; 83036; 84100; 84145; 84156; 84300; 84443; 84484; 84702; 85025; 85027; 86140; 93005; 93306; 93356; 93975; 96374; 99285; G0378; J0360; J1644; J1756; J2405; J3490; J7050; J7510